=== PATIENT | male | born 1950 | race Caucasian/White ===

== ENCOUNTER 2019-07-08 16:36 | Emergency (ER) | payer MEDICARE, SELFPAY ==
[2019-07-08 16:57] VITALS: BP 114/70; PULSE 119; RESP 19; TEMP 37; O2SAT 98
[2019-07-08 17:27] LABS: Basophils Percent Auto 0.2 % (0.2-1.2); Hematocrit 52.8 % (42.0-52.0); Hemoglobin 17.8 g/dL (14.0-18.0); Immature Granulocyte Absolute 0.06 K/mm3 (0.00-0.031); Immature Granulocyte Percent A 0.5 % (0-0.5); Lymphocytes Absolute Auto 0.26 K/mm3 (0.9-3.2); Mean Corpuscular HGB Conc 33.7 g/dl (32-36); Mean Corpuscular Hemoglobin 30.2 pg (26-34); Mean Corpuscular Volume 89.5 fl (80-100); Monocytes Absolute Auto 0.7 K/mm3 (0.1-0.6); Monocytes Percent Auto 5.6 % (2.6-8.5); Neutrophils Absolute Auto 11.7 K/mm3 (1.3-6.7); Neutrophils Percent Auto 91.7 % (45.5-73.1); Platelet Count Result 191 k/mm3 (150-375); Red Cell Distribution Width 13.5 % (11.5-14.5); White Blood Count 12.8 K/mm3 (4.5-10.0)
--- NOTE | 2019-07-08 17:29 | ED.NAVMDI ---
HPI - Nausea/Vomiting/Diarrhea General Chief complaint: Nausea/Vomiting/Diarrhea Stated complaint: N/V/D Time Seen by Provider: 07/08/19 17:14 Source: patient Mode of arrival: ambulatory Limitations: no limitations History of Present Illness HPI Narrative: A 69 y/o male presents to the ED with c/o N/V/D. Pt states that at 0300 today he started to have severe diarrhea. He notes that he had episodes of diarrhea every 20 minutes. Pt then began to have nausea and dry heaves at 0600 this morning. He took Imodium at 0600, which decreased the frequency of the episodes of diarrhea. At 1500 today the patient then had an episode of bloody emesis, so he decided to come to the ED. The patient adds that last night he was coming home from [place] and stopped at a [employer] and ate a fish sandwich. He does not note any recent antibiotic use. Pt reports chills and lower ABD pain, but denies fever. MD elicited complaint: nausea, vomiting and diarrhea Onset (ago): hour(s) (14) Description of vomiting: bloody Associated nausea: Yes Associated abdominal pain: Yes Location of pain: RLQ and LLQ Pain consistency: constant Relieving factors: medication (Imodium) Associated symptoms: fever/chills Treatment prior to arrival: immodium Related Data Home Medications Medication Instructions Recorded Confirmed tadalafil 5 mg tablet 5 mg PO DAILY 04/04/19 Allergies Allergy/AdvReac Type Severity Reaction Status Date / Time EMELY Inhibitors Allergy Unknown Unknown Verified 07/08/19 17:11 nabumetone Allergy Unknown Unknown Verified 07/08/19 17:11 Review of Systems Review of Systems: All systems reviewed & are unremarkable except as noted in HPI and below Constitutional: Constitutional: Reports chills and Denies fever(s) Gastrointestinal: Gastrointestinal: Reports abdominal pain (Lower), Reports diarrhea, Reports nausea, Reports vomiting and Reports hematemesis PMFSH Past Medical History Medical History Arthritis Erectile dysfunction Hyperlipidemia Hypertension Migraine Surgical History Surgical History H/O arthroscopic knee surgery History of colonoscopy History of elbow surgery History of rotator cuff surgery History of surgery on arm History of tonsillectomy History of vasectomy Family History Family History Father Hypertension Family history of elevated blood lipids Cerebrovascular accident Grandparent Acute myocardial infarction Malignant neoplasm of prostate Mother Family history of lung cancer Social History Social History Smoking status: Never smoker Second hand tobacco smoke exposure: No Alcohol intake: current Substance use: never Substance use type: does not use Gender identity (if verbalized by the patient): Male Exam Narrative: Exam Narrative: GENERAL: Well-appearing, well-nourished, and in no acute distress. HEAD: Normocephalic, atraumatic. EYES: PERRLA and EOMI. ENT: Nares clear, Mucous membranes moist. NECK: Supple. CHEST: Clear to auscultation. No respiratory distress. HEART: Regular rate and rhythm. No murmur heard. Normal peripheral pulses. ABDOMEN: Soft, non tender, non distended, normal active bowel sounds. EXTREMITIES: Normal range of motion. No edema. SKIN: Warm, dry, no rash. NEURO: No focal deficits. Alert and oriented x3. PSYCH: Normal mood and affect. Course Course Emergency Course: Inform patient about his lab work. Advised him to drink plenty of fluids take Zofran as needed. Vital Signs Vital signs: Vital Signs Temperature 37.0 C 07/08/19 16:57 Pulse Rate 119 H 07/08/19 16:57 Respiratory Rate 19 07/08/19 16:57 Blood Pressure 114/70 07/08/19 16:57 Pulse Oximetry 98 07/08/19 16:57 Temperature 37.2 C 07/08/19 19:01 Pulse Rate 94 07/08/19 19:17 Respiratory Rate
[2019-07-08 17:30] VITALS: BP 150/93; PULSE 102
[2019-07-08 17:31] VITALS: BP 133/80; BP 143/83; PULSE 109; PULSE 113
[2019-07-08 17:40] LABS: Add Urine Microscopic? YES; Appearance Urine Clear (Clear); Bilirubin Urine Negative (Negative); Blood Urine Negative (Negative); Color Urine Yellow (Yellow); Glucose Urine UA Negative (Negative); Hyaline Casts Urine 15-19 /lpf; Ketones Urine Negative (Negative); Leukocyte Esterase Ur Negative LEU/UL (Negative); Mucus Urine Heavy /lpf; Nitrate Urine Negative (Negative); Protein Urine 1+ mg/dL (Negative); RBC Urine 0-2 /hpf (0-2); Specific Grav Ur 1.028 (1.001-1.035); Urobilinogen Urine Negative mg/dL (<2.0); WBC Urine 0-3 /hpf
[2019-07-08 18:13] LABS: Alanine Aminotransferase 23 U/L (4-50); Albumin Level 4.5 g/dL (3.5-5.1); Alkaline Phosphatase 88 U/L (38-126); Aspartate Amino Transferase 22 U/L (17-59); Bilirubin,Total 0.7 mg/dL (0.2-1.3); Blood Urea Nitrogen 20 mg/dL (9-20); Calcium 9.3 mg/dL (8.4-10.2); Carbon Dioxide 27 mmol/L (22-30); Chloride 105 mmol/L (98-107); Estimated Glomerular Filt Rate 50; Glucose 126 mg/dL (75-110); Lipase 85 U/L (23-300); Potassium 4.1 mmol/L (3.4-5.0); Sodium 141 mmol/L (137-145)
[2019-07-08] MEDS: ONDANSETRON INJ 4 MG/2 ML VIAL IV PUSH (18:20)
[2019-07-08] MEDS: SODIUM CHLORIDE 0.9% IV 1,000 ML 999 ML IV CONT (18:20)
[2019-07-08 18:23] VITALS: BP 135/80; PULSE 94; RESP 20; TEMP 37.1; O2SAT 99
[2019-07-08 19:01] VITALS: BP 123/81; PULSE 81; RESP 16; TEMP 37.2; O2SAT 100
[2019-07-08 19:17] VITALS: BP 121/97; BP 133/74; BP 142/76; PULSE 89; PULSE 93; PULSE 94
== END 2019-07-08 19:35 | disposition home or self-care (01) ==
PROVIDERS: Emergency Provider Family Medicine; PCP Family Medicine
DX: K52.9 Noninfective gastroenteritis and colitis, unspecified (principal); M19.90 Unspecified osteoarthritis, unspecified site; E78.5 Hyperlipidemia, unspecified; I10 Essential (primary) hypertension; N52.9 Male erectile dysfunction, unspecified
CPT/HCPCS: 36415; 80053; 81001; 83690; 85025; 96361; 96374; 99284; J2405; J7030

== ENCOUNTER 2020-12-14 01:57 | Day surgery (SDC) | payer MEDICARE, SELFPAY ==
[2020-12-06 13:27] VITALS: BMI 24.2
--- NOTE | 2020-12-13 13:26 | WPDANESEPPF ---
Anes - Initial Pre Proc Eval Procedure: Operation Date: 12/14/20 10:00 Proposed Procedures p Screening Colonoscopy - Jericho Crocker MD Date/Time: 12/13/20 13:26 Surgeon: Jericho Crocker MD Pre Op Diagnosis: hx of colon polyps Patient Data Age: 70 Gender: M Height: 1.83 m Weight: 81 kg Allergies Allergy/AdvReac Type Severity Reaction Status Date / Time EMELY Inhibitors Allergy Unknown Unknown Verified 12/14/20 09:04 nabumetone Allergy Unknown Unknown Verified 12/14/20 09:04 Home Medications Medication Instructions Recorded Confirmed Type diclofenac sodium 75 mg 75 mg PO BID PRN #60 tablet 08/20/19 12/14/20 Rx tablet,delayed release cholestyramine (with sugar) 4 gram 4 g PO DAILY #30 ea 11/01/20 12/14/20 Rx powder for susp in a packet irbesartan 75 mg tablet 75 mg PO DAILY #90 tablet 11/03/20 12/14/20 Rx tadalafil 5 mg tablet 5 mg PO DAILY #90 tablet 11/03/20 12/14/20 Rx Patient hx anesthesia problems: none Family hx anesthesia problems: none PMFSH Past Medical History Medical History (Updated 12/14/20 @ 09:41 by Jericho Crocker MD) Arthritis Diarrhea Erectile dysfunction Hyperlipidemia Hypertension Migraine Osteoarthritis Surgical History Surgical History H/O arthroscopic knee surgery History of colonoscopy History of elbow surgery History of rotator cuff surgery History of surgery on arm History of tonsillectomy History of vasectomy Family History Family History Father Hypertension Family history of elevated blood lipids Cerebrovascular accident Grandparent Acute myocardial infarction Malignant neoplasm of prostate Mother Family history of lung cancer Social History Social History Smoking status: Never smoker Second hand tobacco smoke exposure: No Alcohol intake: current Drinks per week: 2 Alcohol use details: 3 drinks per month. Substance use: never Substance use type: does not use Living arrangements: with family Gender identity (if verbalized by the patient): Male Spiritual care concerns: No Anes - Eval Final PreProcedure Day of Procedure 12/13/20 13:26 Patient weight: normal Heart: regular rate and rhythm Lungs: clear to auscultation and normal air movement Airway: Mallampati scale class II Neurological: alert and oriented Last oral intake: >/= 8 hours ASA classification: II Emergent: no Anesthetic plan: proceed Anesthesia type and monitoring: general GIVS and standard monitoring Informed Consent: The patient's anesthetic plan and its attendant risks and benefits were discussed with the patient/family/POA. Questions were solicited and answers provided to the satisfaction of the patient/family/POA.
[2020-12-14 08:40] VITALS: BP 155/78; PULSE 73; RESP 13; TEMP 36.5; O2SAT 96
[2020-12-14] MEDS: LACTATED RINGERS 1,000 ML 150 ML IV CONT (09:02)
--- NOTE | 2020-12-14 09:39 | WPDGICN ---
Assessment and Plan Assessment and plan (1) Colon cancer screening: Code(s): Z12.11 - Encounter for screening for malignant neoplasm of colon Status: Acute Assessment and Plan: Patient presents for colon cancer screening. He reports his mother had a right hemicolectomy for a colon cancer. Surveillance colonoscopy is suggested at 5 year intervals. (2) Family history of colon cancer in mother: Code(s): Z80.0 - Family history of malignant neoplasm of digestive organs Status: Acute Assessment and Plan: Patient reports his mother had a right hemicolectomy because of colon cancer. Apparently had a malignant colon polyp. Follow-up is suggested 5 year intervals for this reason. GI Consult Note Consult date/time: 12/14/20 09:39 HPI: Logan Rodrigues is a 70 year old male Presents for screening colonoscopy. Patient reports his current weight appetite bowel movements are normal. Patient denies abdominal pain. He has had no bleeding. Family history is significant his mother had colon cancer. Patient's most recent colonoscopy was in 2013. Previously 2008. He currently denies abdominal pain his bowel habits are normal. Screening colonoscopy to be performed today. [facility] Past Medical History Medical History (Updated 12/14/20 @ 09:41 by Jericho Crocker MD) Arthritis Diarrhea Erectile dysfunction Hyperlipidemia Hypertension Migraine Osteoarthritis Surgical History Surgical History H/O arthroscopic knee surgery History of colonoscopy History of elbow surgery History of rotator cuff surgery History of surgery on arm History of tonsillectomy History of vasectomy Family History Family History Father Hypertension Family history of elevated blood lipids Cerebrovascular accident Grandparent Acute myocardial infarction Malignant neoplasm of prostate Mother Family history of lung cancer Social History Social History Smoking status: Never smoker Second hand tobacco smoke exposure: No Alcohol intake: current Drinks per week: 2 Alcohol use details: 3 drinks per month. Substance use: never Substance use type: does not use Living arrangements: with family Gender identity (if verbalized by the patient): Male Spiritual care concerns: No Meds Home Medications and Allergies Home Medications Medication Instructions Recorded Confirmed Type diclofenac sodium 75 mg 75 mg PO BID PRN #60 tablet 08/20/19 12/14/20 Rx tablet,delayed release cholestyramine (with sugar) 4 gram 4 g PO DAILY #30 ea 11/01/20 12/14/20 Rx powder for susp in a packet irbesartan 75 mg tablet 75 mg PO DAILY #90 tablet 11/03/20 12/14/20 Rx tadalafil 5 mg tablet 5 mg PO DAILY #90 tablet 11/03/20 12/14/20 Rx Allergies Allergy/AdvReac Type Severity Reaction Status Date / Time EMELY Inhibitors Allergy Unknown Unknown Verified 12/14/20 09:04 nabumetone Allergy Unknown Unknown Verified 12/14/20 09:04 Vital Signs Vital Signs - 24 hr 12/14/20 08:40 Temperature 97.7 F Pulse Rate 73 Respiratory Rate 13 Blood Pressure 155/78 H Pulse Oximetry 96 Exam Narrative: Physical exam reveals patient to be alert. Vital signs stable. HEENT exam is unremarkable. Patient is anicteric. Lungs are clear to auscultation and percussion. Heart is without murmur or extra sounds. Abdominal exam bowel sounds are present soft nontender with no organomegaly. Digital external rectal exam is normal.
[2020-12-14 10:38] VITALS: BP 104/69; PULSE 62; RESP 23; O2SAT 98
[2020-12-14 10:48] VITALS: BP 113/78; PULSE 65; RESP 20; O2SAT 98
[2020-12-14 10:58] VITALS: BP 131/67; PULSE 56; RESP 21; O2SAT 99
== END 2020-12-14 11:10 | disposition home or self-care (01) ==
PROVIDERS: PCP Family Medicine; Visit Provider Internal Medicine Gastroenterology
PROC: 0DJD8ZZ Inspection of Lower Intestinal Tract, Via Natural or Artificial Opening Endoscopic (ICD-10-PCS; CPT 45378; principal; 2020-12-14 10:00)
DX: Z12.11 Encounter for screening for malignant neoplasm of colon (principal); Z80.0 Family history of malignant neoplasm of digestive organs; K64.8 Other hemorrhoids; M19.90 Unspecified osteoarthritis, unspecified site; I10 Essential (primary) hypertension; E78.5 Hyperlipidemia, unspecified
CPT/HCPCS: G0105; J2001; J2704; J7120

== ENCOUNTER → 2021-01-20 02:45 | Outpatient (CLI) | payer MEDICARE, SELFPAY ==
[2021-01-20 16:56] LABS: SARS-CoV-2 RNA PCR Negative
== END ==
PROVIDERS: PCP Family Medicine; Visit Provider Family Medicine
DX: Z20.822 Contact with and (suspected) exposure to COVID-19 (principal); R09.89 Other specified symptoms and signs involving the circulatory and respiratory systems
CPT/HCPCS: C9803; U0003; U0005

== ENCOUNTER → 2021-05-04 11:49 | Outpatient (CLI) | payer MEDICARE, SELFPAY ==
--- NOTE | ~2021-05-04 | XR_ITS ---
EXAMINATION: XR thoracic spine 3V EXAM DATE: 05/04/2021 12:05 INDICATION: M54.6 - Pain in thoracic spine . TECHNIQUE: Frontal and lateral projections of the thoracic spine as well as lateral swimmers projecti on of the upper thoracic spine for interpretation. There is no prior study for comparison. FINDINGS: Moderate to large sized mid and lower thoracic ridging endplate osteophytes. Mild diffuse loss of thoracic vertebral body and disc heights. No endplate erosive change. There are no acute frac tures identified. Paraspinal soft tissue is unremarkable. IMPRESSION: Spondylosis and sizable endplate osteophytes. Mild diffuse loss of vertebral body heights without acute fracture line identified. Reviewed, dictated and finalized at location A. 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
== END ==
PROVIDERS: Visit Provider Family Medicine
DX: M47.814 Spondylosis without myelopathy or radiculopathy, thoracic region (principal)
CPT/HCPCS: 72072

== ENCOUNTER 2021-05-16 12:31 | Outpatient (CLI) | payer MEDICARE, SELFPAY ==
--- NOTE | ~2021-05-16 | US_ITS ---
US renal BI 05/16/2021 13:33 Procedure: Realtime transabdominal ultrasound of the kidneys and bladder. Indication: Abnormal labs. Comparison: Chronic kidney disease Findings: Renal echotexture is normal bilaterally without hydronephrosis, contour deforming mass or r enal calculus. The right kidney measures 11.6 cm and left kidney measures 12 cm. There are bilateral renal cysts, largest in the right kidney measuring 5 cm in largest in the left kidney measuring 3.1 c m. Bladder within normal limits. Impression: 1: Moderate left hydronephrosis. 2: Bilateral renal cysts. Reviewed, dictated and finalized at location B. [facility] Impression: 1: Moderate left hydronephrosis. 2: Bilateral renal cysts.
== END 2021-05-16 12:32 | disposition home or self-care (01) ==
LOC: ANHIMG 12:35
PROVIDERS: PCP Family Medicine; Visit Provider Family Medicine
DX: N18.30 Chronic kidney disease, stage 3 unspecified (principal); N13.30 Unspecified hydronephrosis; N28.1 Cyst of kidney, acquired
CPT/HCPCS: 76775

== ENCOUNTER 2021-06-27 09:04 | Outpatient (CLI) | payer MEDICARE, SELFPAY ==
--- NOTE | ~2021-06-27 | CT_ITS ---
EXAMINATION: CT abdomen pelvis wo/w con DATE: 06/27/2021 09:43 INDICATION: Hydronephrosis TECHNIQUE: Computed tomography (CT) of the abdomen and pelvis was performed without intravenous contr ast. CT of the abdomen and pelvis was then performed with a total of 130 mL Omnipaque 350 intravenous contrast using a double-bolus technique for simultaneous opacification of the renal parenchyma and r enal collecting system. The dose-length product (DLP) was 956.30 mGy-cm. Automated exposure control a nd iterative reconstruction technique were employed. COMPARISON: Ultrasound, 05/16/2021 FINDINGS: Minimal dependent atelectasis is present in the lung bases. The heart size is normal. There is a 2 mm nodule of the right middle lobe. There are 4 mm nodules of the lower lobes. Cysts of the l iver measure up to 1.3 cm in the left hepatic lobe. The spleen, pancreas, gallbladder, and adrenal gl ands are normal. There are peripelvic cysts of the left kidney measuring up to 4.4 cm which account f or the sonographic finding in question. Parenchymal cysts of the kidneys measure up to 5.1 cm on the right. No suspicious renal or urothelial lesion is identified. No stones are identified in the kidney s, ureters, or bladder. There is no hydronephrosis or hydroureter. No pathologically enlarged abdomin al or pelvic lymph nodes are identified. There is no free intraperitoneal gas or evidence of bowel ob struction. There is mild lumbar spondylosis. IMPRESSION: 1. Peripelvic cysts of the left kidney accounting for the sonographic findings. No suspicious renal o r urothelial lesion identified. No hydronephrosis or hydroureter. Reviewed, dictated and finalized at location B. [facility] IMPRESSION: 1. Peripelvic cysts of the left kidney accounting for the sonographic findings. No suspicious renal or urothelial lesion identified. No hydronephrosis or hydr oureter.
== END 2021-06-27 09:05 | disposition home or self-care (01) ==
LOC: ANHIMG 09:06
PROVIDERS: PCP Family Medicine; Visit Provider Urology
DX: N13.30 Unspecified hydronephrosis (principal); K76.89 Other specified diseases of liver; N28.1 Cyst of kidney, acquired
CPT/HCPCS: 74178; Q9967

== ENCOUNTER 2023-06-13 11:18 | Emergency (ER) | payer MEDICARE, SELFPAY ==
[2023-06-13 11:23] VITALS: BP 133/82; PULSE 87; RESP 16; TEMP 36.7; O2SAT 98
--- NOTE | 2023-06-13 11:26 | ED.URI ---
HPI - URI/Sore Throat General Chief Complaint: Upper Respiratory Infection Stated Complaint: SORE THROAT/EARACHE/JAW PAIN/HOARSE Time Seen by Provider: 06/13/23 11:26 Source: patient Mode of arrival: ambulatory Limitations: no limitations History of Present Illness HPI Narrative: 73 yo male presents complaint of sore throat, nasal congestion, right ear pain for 2 days. Afebrile. Taking Coricidin to treat congestion. Denies nausea vomiting diarrhea. No cough or chest congestion. All systems reviewed and negative except as noted above. Related Data Allergies Allergy/AdvReac Type Severity Reaction Status Date / Time EMELY Inhibitors Allergy Unknown Unknown Verified 06/13/23 11:33 nabumetone Allergy Unknown Unknown Verified 06/13/23 11:33 Review of Systems Review of Systems: CONSTITUTIONAL: Denies fever, chills, or sweats. EYES: Denies visual changes, redness, or discharge. ENT: Reports rhinorrhea, congestion, sore throat, right ear pain CARDIOVASCULAR: Denies chest pain, palpitations, or edema. RESPIRATORY: Denies cough or dyspnea. GASTROINTESTINAL: Denies abdominal pain, nausea, vomiting, or diarrhea. GENITOURINARY: Denies dysuria or hematuria. SKIN: Denies rash or itching. MUSCULOSKELETAL: Denies back pain, joint pain, or myalgia. NEUROLOGIC: Denies headache, numbness, or weakness. PSYCHIATRIC: Denies anxiety or depression. All other systems reviewed are negative, except as documented in HPI. [facility] Past Medical History Medical History Arthritis Chronic renal insufficiency, stage III (moderate) Diarrhea Elevated PSA Erectile dysfunction Hyperlipidemia Hypertension Migraine Osteoarthritis Prediabetes Surgical History Surgical History H/O arthroscopic knee surgery History of colonoscopy History of elbow surgery History of rotator cuff surgery History of surgery on arm History of tonsillectomy History of vasectomy Family History Family History Father Hypertension Family history of elevated blood lipids Cerebrovascular accident Grandparent Acute myocardial infarction Malignant neoplasm of prostate Mother Family history of lung cancer Social History Social History (Reviewed 06/04/23 @ 15:31 by Isra Lewis [facility] Smoking status: Never smoker Second hand tobacco smoke exposure: No Alcohol intake: current Drinks per week: 2 Alcohol use details: 3 drinks per month. Substance use: never Substance use type: does not use Lack of Transportation: No Lack of Food: Never True Current Housing: I Have Housing Concerned About Future Housing: No Difficulty Paying Gas/Electric Bills: No Difficulty Paying for Meds: No Currently Unemployed: No Education: Associate Degree Difficulty w/ Childcare or Family Care: No Living arrangements: with family Occupation/Education: retired Gender identity (if verbalized by the patient): Male Sexual Orientation (if Verbalized by the Patient): Straight or Heterosexual Spiritual care concerns: No Agree to blood products: Yes Comments At time of signature, agree with nursing past medical, surgical, social and family history. There is no relevant family history pertinent to the presenting complaint. Exam Narrative: GENERAL: This is a well-nourished, well-developed patient, in no apparent distress. HEAD: normocephalic, atraumatic. EYES: PERRL. Sclera clear/white. Vision is grossly intact. EARS: External ears normal, auditory canals clear and without drainage, TMs normal without perforation. Hearing grossly intact. NOSE: External nose normal with no obvious nasal discharge, nares without redness, no rhinorrhea. THROAT: Mucous membranes moist, erythema with swelling. No exudates. Tonsils 1+ bilaterally. NECK: Neck supple, non-tender wi
== END 2023-06-13 11:45 | disposition home or self-care (01) ==
PROVIDERS: Emergency Provider Nurse Practitioner Family; PCP Family Medicine
DX: J02.9 Acute pharyngitis, unspecified (principal); H92.01 Otalgia, right ear; Z20.822 Contact with and (suspected) exposure to COVID-19; I12.9 Hypertensive chronic kidney disease with stage 1 through stage 4 chronic kidney disease, or unspecified chronic kidney disease; N18.30 Chronic kidney disease, stage 3 unspecified; E78.5 Hyperlipidemia, unspecified; M19.90 Unspecified osteoarthritis, unspecified site; R73.03 Prediabetes; Z98.52 Vasectomy status
CPT/HCPCS: 87081; 87426; 87804; 87880; 99213; G0463

== ENCOUNTER 2023-06-21 09:33 | Outpatient (CLI) | payer MEDICARE, SELFPAY ==
--- NOTE | ~2023-06-21 | US_ITS ---
Renal-Bladder ultrasound Clinical History: Chronic kidney disease Technique: Real-time sonographic imaging of the kidneys and urinary bladder was performed. Findings: The right kidney measures 13.1 cm in length and the left kidney measures 12.9 cm. There is no hydronephrosis or renal calculus identified. Renal cortical echogenicity is within normal limits. No solid renal mass lesion is identified. Bilateral renal cysts are present. The urinary bladder is moderately distended at the time of this exam. No intraluminal echoes are iden tified. No abnormal wall thickening is seen. Prostate gland enlarged. Impression: Unremarkable ultrasound of the kidneys and urinary bladder. Enlarged prostate gland. Reviewed, dictated and finalized at location . 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 Enlarged prostate gland.
[2023-06-21 10:05] LABS: Appearance Urine Clear (Clear); Bilirubin Urine Negative (Negative); Blood Urine Negative (Negative); Color Urine Yellow (Yellow); Glucose Urine UA Negative (Negative); Ketones Urine Negative (Negative); Leukocyte Esterase Ur Negative LEU/UL (Negative); Nitrate Urine Negative (Negative); Protein Urine Negative (Negative); Specific Grav Ur 1.008 (1.001-1.035); Urobilinogen Urine 0.2 mg/dL (<2.0)
[2023-06-21 10:16] LABS: Add Urine Microscopic? NO
== END 2023-06-21 09:34 | disposition home or self-care (01) ==
PROVIDERS: PCP Family Medicine; Referring Provider Physician Assistant; Visit Provider Family Medicine
DX: N18.30 Chronic kidney disease, stage 3 unspecified (principal); R30.0 Dysuria; N40.0 Benign prostatic hyperplasia without lower urinary tract symptoms
CPT/HCPCS: 76775; 81003

== ENCOUNTER 2023-08-01 11:18 | Emergency (ER) | payer MEDICARE, SELFPAY ==
--- NOTE | 2023-08-01 11:29 | ECG_ITS ---
Measurements Intervals [place] Rate: 73 P: 56 IN: 157 QRS: 29 QRSD: 90 T: 67 QT: 359 QTc: 385 Interpretive Statements SINUS RHYTHM NORMAL ECG SEE SCANNED COPY FOR SIGNATURE MTDD
[2023-08-01 11:36] VITALS: BP 202/100; PULSE 78; RESP 16; TEMP 36.7; O2SAT 96
--- NOTE | 2023-08-01 11:49 | ED.GENADULT ---
HPI - General Adult General Chief complaint: Unspecified Stated complaint: CONFUSION Time Seen by Provider: 08/01/23 11:25 Source: patient Mode of arrival: ambulatory Limitations: no limitations History of Present Illness HPI narrative: 73-year-old male with history of high blood pressure presents with complaint of feeling forgetful and, ?brain fog ?. Patient states that he has had some nasal congestion, postnasal drainage and cough for the past 2 days related to cutting grass. He states yesterday he got up during the middle the night to use the bathroom and coughed, causing nose bleed. States ?had a significant amount of blood from my nose ?. Got up later than usual today. Did his normal morning routine. Ate breakfast and then states he could not remember what he was supposed to do next. Called his and states he just kept saying over and over again i dont know what im doing . Also does not remember what he did yesterday. Has been off his BP meds for over a week. Was concerned was causing diarrhea. Pt is ambulatory with steady gait. Denies dizziness. C/o pressure across forehead. No weakness to extremities or facial droop. Oriented to person and place. Is confused on time. Knows that time if he looks at the clock but states he cannot remember what day it is. All systems reviewed and negative except as noted above. Related Data Allergies Allergy/AdvReac Type Severity Reaction Status Date / Time EMELY Inhibitors Allergy Unknown Unknown Verified 08/01/23 11:24 nabumetone Allergy Unknown Unknown Verified 08/01/23 11:24 [facility] Past Medical History Medical History Arthritis Chronic renal insufficiency, stage III (moderate) Diarrhea Elevated PSA Erectile dysfunction Hyperlipidemia Hypertension Migraine Osteoarthritis Prediabetes Surgical History Surgical History H/O arthroscopic knee surgery History of colonoscopy History of elbow surgery History of rotator cuff surgery History of surgery on arm History of tonsillectomy History of vasectomy Family History Family History Father Hypertension Family history of elevated blood lipids Cerebrovascular accident Grandparent Acute myocardial infarction Malignant neoplasm of prostate Mother Family history of lung cancer Social History Social History Smoking status: Never smoker Second hand tobacco smoke exposure: No Alcohol intake: current Drinks per week: 2 Alcohol use details: 3 drinks per month. Substance use: never Substance use type: does not use Lack of Transportation: No Lack of Food: Never True Current Housing: I Have Housing Concerned About Future Housing: No Difficulty Paying Gas/Electric Bills: No Difficulty Paying for Meds: No Currently Unemployed: No Education: Associate Degree Difficulty w/ Childcare or Family Care: No Living arrangements: with family Occupation/Education: retired Gender identity (if verbalized by the patient): Male Sexual Orientation (if Verbalized by the Patient): Straight or Heterosexual Spiritual care concerns: No Agree to blood products: Yes Comments At time of signature, agree with nursing past medical, surgical, social and family history. There is no relevant family history pertinent to the presenting complaint. Exam Narrative: GENERAL: This is a well-nourished, well-developed patient, in no apparent distress. HEAD: normocephalic, atraumatic. EYES: PERRL. Sclera clear/white. Vision is grossly intact. Extraocular motions intact EARS: External ears normal, auditory canals clear and without drainage, TMs normal without perforation. Hearing grossly intact. NOSE: External nose normal with no obvious nasal discharge, nares without
== END 2023-08-01 11:40 | disposition short-term general hospital (02) ==
PROVIDERS: Emergency Provider Nurse Practitioner Family; PCP Family Medicine
DX: R41.3 Other amnesia (principal); I10 Essential (primary) hypertension; M19.90 Unspecified osteoarthritis, unspecified site; I12.9 Hypertensive chronic kidney disease with stage 1 through stage 4 chronic kidney disease, or unspecified chronic kidney disease; N18.30 Chronic kidney disease, stage 3 unspecified; E78.5 Hyperlipidemia, unspecified; R73.03 Prediabetes; Z98.52 Vasectomy status
CPT/HCPCS: 93005; 99213; G0463

== ENCOUNTER 2023-08-01 12:07 | Emergency (ER) | payer MEDICARE, SELFPAY ==
--- NOTE | ~2023-08-01 | CT_ITS ---
Non-contrast Head CT History: Altered mental status Technique: Axial non-contrast imaging of the brain was performed. Dose reduction technique was used on this scan by utilizing automated exposure control and iterative reconstruction technique. The dose -length product (DLP) was 605.33 mGy-cm. Findings: There is no evidence of intracranial hemorrhage, mass lesion, or acute infarct. Brain par enchyma appears normal. The ventricles and subarachnoid spaces are normal in size. The calvarium ap pears normal. The visualized paranasal sinuses and mastoid air cells are clear. Impression: No significant abnormality seen. Reviewed, dictated and finalized at location . Impression: No significant abnormality seen.
--- NOTE | ~2023-08-01 | XR_ITS ---
Clinical Indication: Hypertension PA and lateral views of the chest: Comparison: None Findings: The lungs are clear, without evidence of focal consolidation or pleural effusion. Cardiome diastinal silhouette is within normal limits. Bones and soft tissues are unremarkable. Impression: Normal chest. Reviewed, dictated and finalized at location . Impression: Normal chest.
[2023-08-01 12:08] VITALS: BP 219/115; PULSE 77; RESP 16; TEMP 36.2; O2SAT 99
--- NOTE | 2023-08-01 12:16 | ED.NEUROSD ---
HPI - Neuro Symptoms/Deficit General Chief Complaint: Neuro Symptoms/Deficit Stated Complaint: short term memory loss, elevated BP Time Seen by Provider: 08/01/23 12:15 Source: patient Mode of arrival: ambulatory Limitations: no limitations History of Present Illness HPI Narrative: Logan is a 73-year-old male patient presenting to the emergency room with complaints of brain fog and elevated blood pressure. He reports that he had a nosebleed last night. This morning became confused and for got when he was doing and called his and told her he did not know what he was doing so she quickly went home and the patient was taken to the [facility]. Upon arrival to the ER patient's blood pressure is 219/115. He is currently alert and oriented x4. Does have slight headache across the forehead. Had this happen before and it was due to his blood pressure being elevated. Related Data Allergies Allergy/AdvReac Type Severity Reaction Status Date / Time EMELY Inhibitors Allergy Unknown Unknown Verified 08/01/23 12:24 nabumetone Allergy Unknown Unknown Verified 08/01/23 12:24 Review of Systems Review of Systems: Pertinent positives per HPI. Patient denies any fever, chills, rash, visual changes, dizziness, cough, shortness of breath, chest pain, palpitations, nausea, vomiting, diarrhea, constipation, abdominal pain, or any urinary issues. [facility] Past Medical History Medical History Arthritis Chronic renal insufficiency, stage III (moderate) Diarrhea Elevated PSA Erectile dysfunction Hyperlipidemia Hypertension Migraine Osteoarthritis Prediabetes Surgical History Surgical History H/O arthroscopic knee surgery History of colonoscopy History of elbow surgery History of rotator cuff surgery History of surgery on arm History of tonsillectomy History of vasectomy Family History Family History Father Hypertension Family history of elevated blood lipids Cerebrovascular accident Grandparent Acute myocardial infarction Malignant neoplasm of prostate Mother Family history of lung cancer Social History Social History Smoking status: Never smoker Second hand tobacco smoke exposure: No Alcohol intake: current Drinks per week: 2 Alcohol use details: 3 drinks per month. Substance use: never Substance use type: does not use Lack of Transportation: No Lack of Food: Never True Current Housing: I Have Housing Concerned About Future Housing: No Difficulty Paying Gas/Electric Bills: No Difficulty Paying for Meds: No Currently Unemployed: No Education: Associate Degree Difficulty w/ Childcare or Family Care: No Living arrangements: with family Occupation/Education: retired Gender identity (if verbalized by the patient): Male Sexual Orientation (if Verbalized by the Patient): Straight or Heterosexual Spiritual care concerns: No Agree to blood products: Yes Comments At the time of my signature, I reviewed and agree with the nursing past medical, surgical, social, and family history. There is no relevant family history pertinent to the patient complaint. Exam Narrative: General: Well-developed, well nourished, in no apparent distress Head: Normocephalic, atraumatic Eyes: Pupils equally round and reactive to light bilaterally, EOM intact, sclera and conjunctive clear, no discharge, lids normal Ears: TMs intact and clear, ear canals clear, no drainage, grossly hearing normal. Nose: Nares patent, no discharge, no inflammation, no sinus tenderness. Mouth: Oropharynx without lesions or masses, good dentition, MMM. Tongue midline, even rise and fall of uvula Neck: Supple, trachea midline, no enlargement of anterior or posterior cervical nodes, n
[2023-08-01 12:18] VITALS: O2SAT 97
--- NOTE | 2023-08-01 12:20 | ECG_ITS ---
SEE SCANNED COPY FOR CONFIRMED REPORT MTDD
[2023-08-01 12:29] LABS: Glucose Point of Care 147 mg/dl (65-105)
[2023-08-01 12:35] LABS: Appearance Urine Clear (Clear); Bilirubin Urine Negative (Negative); Blood Urine Negative (Negative); Color Urine Yellow (Yellow); Glucose Urine UA Negative (Negative); Ketones Urine Negative (Negative); Leukocyte Esterase Ur Negative LEU/UL (Negative); Nitrate Urine Negative (Negative); Protein Urine Negative (Negative); Urobilinogen Urine 0.2 mg/dL (<2.0)
[2023-08-01 12:42] LABS: Add Urine Microscopic? NO; Basophils Percent Auto 0.4 % (0.2-1.2); Eosinophils Absolute Auto 0.1 K/mm3 (0-0.3); Hematocrit 50.4 % (42.0-52.0); Hemoglobin 17.1 g/dL (14.0-18.0); Immature Granulocyte Absolute 0.04 K/mm3 (0.00-0.031); Immature Granulocyte Percent A 0.4 % (0-0.5); Lymphocytes Absolute Auto 1.55 K/mm3 (0.9-3.2); Lymphocytes Percent Auto 15.2 % (18.3-44.2); Mean Corpuscular HGB Conc 33.9 g/dl (32-36); Mean Corpuscular Hemoglobin 30.5 pg (26-34); Mean Corpuscular Volume 89.8 fl (80-100); Mean Platelet Volume 9.5 fl (7.4-10.4); Monocytes Absolute Auto 1.1 K/mm3 (0.1-0.6); Monocytes Percent Auto 10.3 % (2.6-8.5); Neutrophils Absolute Auto 7.4 K/mm3 (1.3-6.7); Neutrophils Percent Auto 72.7 % (45.5-73.1); Platelet Count Result 222 k/mm3 (150-375); Red Blood Count 5.61 M/mm3 (4.6-6.20); Specific Grav Ur 1.004 (1.001-1.035); White Blood Count 10.2 K/mm3 (4.5-10.0)
[2023-08-01 12:47] LABS: Prothrombin Time 13.2 Seconds (11.1-14.7)
[2023-08-01 12:48] LABS: Alanine Aminotransferase 19 U/L (6-50); Albumin Level 4.9 g/dL (3.5-5.1); Alkaline Phosphatase 88 U/L (38-126); Anion Gap 10 mmol/L (4-12); Aspartate Amino Transferase 22 U/L (17-59); Bilirubin,Total 0.7 mg/dL (0.2-1.3); Blood Urea Nitrogen 17 mg/dL (9-20); Calcium 9.9 mg/dL (8.4-10.2); Carbon Dioxide 26 mmol/L (22-30); Chloride 108 mmol/L (98-107); Estimated CRCL calculation 49 ml/min; Estimated Glomerular Filt Rate 54; Glucose 133 mg/dL (65-110); Partial Thromboplastin Time 27.8 Seconds (22.3-36.8); Potassium 3.9 mmol/L (3.4-5.0); Sodium 144 mmol/L (137-145)
[2023-08-01 13:00] LABS: Troponin I < 0.012 ng/mL (0.000-0.034)
== END 2023-08-01 13:51 | disposition home or self-care (01) ==
PROVIDERS: Emergency Provider Nurse Practitioner Family; PCP Family Medicine
DX: R41.89 Other symptoms and signs involving cognitive functions and awareness (principal); I12.9 Hypertensive chronic kidney disease with stage 1 through stage 4 chronic kidney disease, or unspecified chronic kidney disease; E78.5 Hyperlipidemia, unspecified; N18.30 Chronic kidney disease, stage 3 unspecified
CPT/HCPCS: 36415; 70450; 71046; 80053; 81003; 82948; 84484; 85025; 85610; 85730; 93005; 99284

== ENCOUNTER 2023-10-24 10:38 | Emergency (ER) | payer MEDICARE, SELFPAY ==
--- NOTE | 2023-10-24 10:43 | ED.EXTPRO ---
HPI - Extremity Problem General Chief complaint: Extremity Problem,Nontraumatic Stated complaint: Leg Pain Time Seen by Provider: 10/24/23 10:40 Source: patient Mode of arrival: ambulatory Limitations: no limitations History of Present Illness HPI Narrative: Logan is a 73-year-old male patient presenting to the clinic today with complaints of right-sided sciatica pain for the past 2-3 days. He reports he contacted his primary care provider and there are not able to get him into the office today. States he is having some severe pain to the right side of the back/posterior hip that is radiating down into his leg. Rates pain 8/10 currently. Has taken diclofenac for pain without relief. Denies any swelling in the right lower extremity. Denies any injury. Thinks he may have slept on it wrong. Related Data Home Medications Medication Instructions Recorded Confirmed irbesartan 75 mg tablet 75 mg PO DAILY 10/24/23 10/24/23 Allergies Allergy/AdvReac Type Severity Reaction Status Date / Time EMELY Inhibitors Allergy Unknown Unknown Verified 10/24/23 10:49 nabumetone Allergy Unknown Unknown Verified 10/24/23 10:49 Review of Systems Review of Systems: Pertinent positives per HPI. Patient denies any fever, chills, rash, headache, visual changes, dizziness, cough, runny nose, sore throat, shortness of breath, chest pain, palpitations, nausea, vomiting, diarrhea, constipation, abdominal pain, or any urinary issues. [facility] Past Medical History Medical History Arthritis Chronic renal insufficiency, stage III (moderate) Diarrhea Elevated PSA Erectile dysfunction Hyperlipidemia Hypertension Migraine Osteoarthritis Prediabetes Surgical History Surgical History H/O arthroscopic knee surgery History of colonoscopy History of elbow surgery History of rotator cuff surgery History of surgery on arm History of tonsillectomy History of vasectomy Family History Family History Father Hypertension Family history of elevated blood lipids Cerebrovascular accident Grandparent Acute myocardial infarction Malignant neoplasm of prostate Mother Family history of lung cancer Social History Social History Smoking status: Never smoker Second hand tobacco smoke exposure: No Alcohol intake: current Drinks per week: 2 Alcohol use details: 3 drinks per month. Substance use: never Substance use type: does not use Lack of Transportation: No Lack of Food: Never True Current Housing: I Have Housing Concerned About Future Housing: No Difficulty Paying Gas/Electric Bills: No Difficulty Paying for Meds: No Currently Unemployed: No Education: Associate Degree Difficulty w/ Childcare or Family Care: No Living arrangements: with family Occupation/Education: retired Gender identity (if verbalized by the patient): Male Sexual Orientation (if Verbalized by the Patient): Straight or Heterosexual Spiritual care concerns: No Agree to blood products: Yes Comments At the time of my signature, I reviewed and agree with the nursing past medical, surgical, social, and family history. There is no relevant family history pertinent to the patient complaint. Exam Narrative: General: Well-developed, well nourished, in no apparent distress Head: Normocephalic, atraumatic. Cardio: Regular rate and rhythm, s1 and s2 normal, no murmur appreciated. Resp: Clear to auscultation bilaterally, no rhonchi, rales, wheezing or rubs. Musculoskeletal: No deformity, tender to palpation over the right para the spinous musculature and over the posterior hip, shooting pain going from the posterior hip to the lower right leg, grossly normal range of motion, muscle strength strong and equa
[2023-10-24 10:48] VITALS: BP 125/90; PULSE 83; RESP 16; TEMP 36.6; O2SAT 99
[2023-10-24 10:49] VITALS: BP 125/90; PULSE 83; RESP 16; TEMP 36.6; O2SAT 99
== END 2023-10-24 10:56 | disposition home or self-care (01) ==
PROVIDERS: Emergency Provider Nurse Practitioner Family; PCP Family Medicine
DX: M54.31 Sciatica, right side (principal); M19.90 Unspecified osteoarthritis, unspecified site; I12.9 Hypertensive chronic kidney disease with stage 1 through stage 4 chronic kidney disease, or unspecified chronic kidney disease; N18.30 Chronic kidney disease, stage 3 unspecified; E78.5 Hyperlipidemia, unspecified; R73.03 Prediabetes
CPT/HCPCS: 99213; G0463

== ENCOUNTER 2023-10-26 14:42 | Emergency (ER) | payer MEDICARE, SELFPAY ==
--- NOTE | ~2023-10-26 | CT_ITS ---
EXAMINATION: CT hip RT wo con DATE: 10/26/2023 15:33 INDICATION: Right hip pain. Sciatica. TECHNIQUE: Computed tomography (CT) of the right hip was performed without intravenous contrast. Auto mated exposure control and iterative reconstruction technique were employed. The dose-length product was 312.62 mGy-cm. COMPARISON: None FINDINGS: Bone alignment is normal. No fracture. There is severe right hip osteoarthritis. IMPRESSION: 1. Severe right hip osteoarthritis. Reviewed, dictated and finalized at location A.
--- NOTE | ~2023-10-26 | CT_ITS ---
EXAMINATION: CT lumbar spine wo con DATE: 10/26/2023 15:33 INDICATION: Low back pain. Sciatica. TECHNIQUE: Computed tomography (CT) of the lumbar spine was performed without intravenous contrast. A utomated exposure control and iterative reconstruction technique were employed. The dose-length produ ct was 741.15 mGy-cm. COMPARISON: None FINDINGS: There are cysts in the kidneys measuring up to 4.9 cm on the right. Bone alignment is evan l. Vertebral body heights are normal. There is mild decreased disc height at L4-L5 and L5-S1. The fol lowing disc levels are specifically discussed: L1-L2: The disc does not extend beyond the endplate margin. There is moderate bilateral facet joint o steoarthritis. There is no neural foraminal stenosis. There is no central canal stenosis. L2-L3: The disc is bulging. There is severe bilateral facet joint osteoarthritis. There is mild bilat eral neural foraminal stenosis. There is mild central canal stenosis. L3-L4: The disc is bulging. There is severe bilateral facet joint osteoarthritis. There is moderate b ilateral neural foraminal stenosis. There is moderate central canal stenosis. L4-L5: The disc is bulging. There is severe bilateral facet joint osteoarthritis. There is moderate b ilateral neural foraminal stenosis. There is moderate central canal stenosis. L5-S1: The disc is bulging. There is severe bilateral facet joint osteoarthritis. There is mild right and moderate left neural foraminal stenosis. There is mild central canal stenosis. IMPRESSION: 1. Moderate lumbar spondylosis. Reviewed, dictated and finalized at location A.
[2023-10-26 14:43] VITALS: BP 154/91; PULSE 54; RESP 16; TEMP 36.5; O2SAT 95
--- NOTE | 2023-10-26 15:20 | ED.BACK ---
HPI - Back Pain/Injury General Chief Complaint: Back Pain/Injury Stated Complaint: sciaticia Time Seen by Provider: 10/26/23 15:20 Focused HPI: Logan is a 73-year-old male patient presenting to the ER today with complaints of sciatica pain in the right low back/hip. States the pain is radiating into his right posterior knee. This has been going on for the past week. Was seen by myself in the [facility] on Sunday and I prescribed him Medrol Dosepak and Flexeril and he states that he has not had relief. No known injury. States that he felt as though he slept wrong and developed the pain. General: Well-developed, well nourished, in no apparent distress Head: Normocephalic, atraumatic. Cardio: Regular rate and rhythm, s1 and s2 normal, no murmur appreciated. Resp: Clear to auscultation bilaterally, no rhonchi, rales, wheezing or rubs. Musculoskeletal: No deformity tender to palpation over the left paraspinous muscles in the low back and over the SI joint, unable to sit down due to increase in pain, grossly normal range of motion, muscle strength strong and equal, peripheral pulse strong, no edema, no cyanosis, normal gait and station Patient screened in triage and initial orders placed. Additional care and disposition to be based upon diagnostic testing and treatment. Source: patient Mode of arrival: ambulatory Limitations: no limitations Related Data Home Medications Medication Instructions Recorded Confirmed irbesartan 75 mg tablet 75 mg PO DAILY 10/24/23 10/24/23 Allergies Allergy/AdvReac Type Severity Reaction Status Date / Time EMELY Inhibitors Allergy Unknown Unknown Verified 10/24/23 10:49 nabumetone Allergy Unknown Unknown Verified 10/24/23 10:49 Review of Systems Review of Systems: Pertinent positives per HPI. Patient denies any fever, chills, rash, headache, visual changes, dizziness, cough, runny nose, sore throat, shortness of breath, chest pain, palpitations, nausea, vomiting, diarrhea, constipation, abdominal pain, or any urinary issues. [facility] Past Medical History Medical History Arthritis Chronic renal insufficiency, stage III (moderate) Diarrhea Elevated PSA Erectile dysfunction Hyperlipidemia Hypertension Migraine Osteoarthritis Prediabetes Surgical History Surgical History H/O arthroscopic knee surgery History of colonoscopy History of elbow surgery History of rotator cuff surgery History of surgery on arm History of tonsillectomy History of vasectomy Family History Family History Father Hypertension Family history of elevated blood lipids Cerebrovascular accident Grandparent Acute myocardial infarction Malignant neoplasm of prostate Mother Family history of lung cancer Social History Social History Smoking status: Never smoker Second hand tobacco smoke exposure: No Alcohol intake: current Drinks per week: 2 Alcohol use details: 3 drinks per month. Substance use: never Substance use type: does not use Lack of Transportation: No Lack of Food: Never True Current Housing: I Have Housing Concerned About Future Housing: No Difficulty Paying Gas/Electric Bills: No Difficulty Paying for Meds: No Currently Unemployed: No Education: Associate Degree Difficulty w/ Childcare or Family Care: No Living arrangements: with family Occupation/Education: retired Gender identity (if verbalized by the patient): Male Sexual Orientation (if Verbalized by the Patient): Straight or Heterosexual Spiritual care concerns: No Agree to blood products: Yes Comments At the time of my signature, I reviewed and agree with the nursing past medical, surgical, social, and family history. There is no relevant family hist
== END 2023-10-26 16:13 | disposition home or self-care (01) ==
PROVIDERS: Emergency Provider Nurse Practitioner Family; PCP Family Medicine
DX: M54.41 Lumbago with sciatica, right side (principal); M16.11 Unilateral primary osteoarthritis, right hip; I12.9 Hypertensive chronic kidney disease with stage 1 through stage 4 chronic kidney disease, or unspecified chronic kidney disease; N18.30 Chronic kidney disease, stage 3 unspecified; E78.5 Hyperlipidemia, unspecified; R73.03 Prediabetes
CPT/HCPCS: 72131; 73700; 99284

== ENCOUNTER 2023-11-03 11:29 | Emergency (ER) | payer MEDICARE, SELFPAY ==
[2023-11-03 11:45] VITALS: BP 161/87; PULSE 75; RESP 16; TEMP 36.6; O2SAT 99
--- NOTE | 2023-11-03 11:47 | ED.EXTPRO ---
HPI - Extremity Problem General Chief complaint: Extremity Problem,Nontraumatic Stated complaint: R LEG PAIN Time Seen by Provider: 11/03/23 11:47 History of Present Illness HPI Narrative: patient presents with complaints of exacerbation of chronic right leg pain. He has been to emergency department and has been seen here for the same complaint. He does have an orthopedic appointment scheduled for November 21. He has been taking hydrocodone and gabapentin for pain relief. He did do a short course of steroids earlier this month. He reports that pain is getting more difficult to tolerate. He denies any injury or trauma. He is noted to walk with a limping gait, states this has been normal for him over the past couple of weeks Related Data Home Medications Medication Instructions Recorded Confirmed irbesartan 75 mg tablet 75 mg PO DAILY 10/24/23 11/03/23 Allergies Allergy/AdvReac Type Severity Reaction Status Date / Time EMELY Inhibitors AdvReac Intermediate Muscle Pain Verified 11/03/23 12:32 nabumetone AdvReac Intermediate Diarrhea Verified 11/03/23 12:32 Review of Systems Review of Systems: All systems reviewed & are unremarkable except as noted in HPI and below Constitutional: Constitutional: Reports no additional constitutional complaints ENT: Reports system reviewed and no additional complaints, except as documented Cardiovascular: Cardiovascular: Reports no additional cardiovascular complaints Respiratory: Respiratory: Reports no additional respiratory complaints Gastrointestinal: Gastrointestinal: Reports no additional gastrointestinal complaints Musculoskeletal: Musculoskeletal: Reports as per HPI, Reports abnormal gait, Reports stiffness and Reports other ( right leg pain) [facility] Past Medical History Medical History Arthritis Chronic renal insufficiency, stage III (moderate) Diarrhea Elevated PSA Erectile dysfunction Hyperlipidemia Hypertension Migraine Osteoarthritis Prediabetes Surgical History Surgical History H/O arthroscopic knee surgery History of colonoscopy History of elbow surgery History of rotator cuff surgery History of surgery on arm History of tonsillectomy History of vasectomy Family History Family History Father Hypertension Family history of elevated blood lipids Cerebrovascular accident Grandparent Acute myocardial infarction Malignant neoplasm of prostate Mother Family history of lung cancer Social History Social History Smoking status: Never smoker Second hand tobacco smoke exposure: No Alcohol intake: current Drinks per week: 2 Alcohol use details: 3 drinks per month. Substance use: never Substance use type: does not use Lack of Transportation: No Lack of Food: Never True Current Housing: I Have Housing Concerned About Future Housing: No Difficulty Paying Gas/Electric Bills: No Difficulty Paying for Meds: No Currently Unemployed: No Education: Associate Degree Difficulty w/ Childcare or Family Care: No Living arrangements: with family Occupation/Education: retired Gender identity (if verbalized by the patient): Male Sexual Orientation (if Verbalized by the Patient): Straight or Heterosexual Spiritual care concerns: No Agree to blood products: Yes Exam Const: General: cooperative, no acute distress, alert and awake Orientation/consciousness: oriented to person, oriented to place and oriented to time HENMT: Head: normal to inspection Resp: Effort & Inspection: normal respiratory effort and able to speak in complete sentences Auscultation: clear to auscultation bilaterally, no crackles, no rales, no rhonchi and no wheezes Cardio: Palpation: normal PMI Rate: regular rate Rhythm: regular
== END 2023-11-03 12:04 | disposition home or self-care (01) ==
PROVIDERS: Emergency Provider Nurse Practitioner Family; PCP Family Medicine
DX: M54.31 Sciatica, right side (principal); M19.90 Unspecified osteoarthritis, unspecified site; E78.5 Hyperlipidemia, unspecified; I12.9 Hypertensive chronic kidney disease with stage 1 through stage 4 chronic kidney disease, or unspecified chronic kidney disease; N18.30 Chronic kidney disease, stage 3 unspecified; R73.03 Prediabetes
CPT/HCPCS: 99213; G0463

== ENCOUNTER 2024-05-09 11:58 | Outpatient (CLI) | payer MEDICARE, SELFPAY ==
[2024-05-09 13:58] LABS: Basophils Absolute Auto 0.1 K/mm3 (0.0-0.1); Basophils Percent Auto 0.7 % (0.2-1.2); Eosinophils Absolute Auto 0.1 K/mm3 (0-0.3); Eosinophils Percent Auto 1.7 % (0-4.4); Hematocrit 51.6 % (42.0-52.0); Hemoglobin 17.3 g/dL (14.0-18.0); Immature Granulocyte Absolute 0.02 K/mm3 (0.00-0.031); Immature Granulocyte Percent A 0.3 % (0-0.5); Lymphocytes Absolute Auto 2.19 K/mm3 (0.9-3.2); Lymphocytes Percent Auto 30.8 % (18.3-44.2); Mean Corpuscular HGB Conc 33.5 g/dl (32-36); Mean Corpuscular Volume 89.4 fl (80-100); Mean Platelet Volume 9.2 fl (7.4-10.4); Monocytes Absolute Auto 0.8 K/mm3 (0.1-0.6); Monocytes Percent Auto 11.3 % (2.6-8.5); Neutrophils Absolute Auto 3.9 K/mm3 (1.3-6.7); Neutrophils Percent Auto 55.2 % (45.5-73.1); Platelet Count Result 243 k/mm3 (150-375); Red Blood Count 5.77 M/mm3 (4.6-6.20); Red Cell Distribution Width 12.9 % (11.5-14.5); White Blood Count 7.1 K/mm3 (4.5-10.0)
[2024-05-09 14:07] LABS: Urine Cotinine NEGATIVE
[2024-05-09 14:08] LABS: Albumin Level 4.7 g/dL (3.5-5.1)
[2024-05-09 14:09] LABS: Partial Thromboplastin Time 27.3 Seconds (22.3-36.8); Prothrombin Time 13.5 Seconds (11.1-14.7)
[2024-05-09 14:11] LABS: Anion Gap 8 mmol/L (4-12); Blood Urea Nitrogen 18 mg/dL (9-20); Calcium 9.5 mg/dL (8.4-10.2); Carbon Dioxide 29 mmol/L (22-30); Chloride 103 mmol/L (98-107); Estimated Glomerular Filt Rate 58; Glucose 107 mg/dL (65-110); Potassium 4.2 mmol/L (3.4-5.0); Sodium 140 mmol/L (137-145)
[2024-05-09 14:56] LABS: Hemoglobin A1C 5.9 % (<5.7)
[2024-05-09 15:07] LABS: MRSA (PCR) NOT DETECTED (NOT DETECTE)
== END 2024-05-09 11:59 | disposition home or self-care (01) ==
LOC: ANHSURGERY 12:01
PROVIDERS: Anesthesiology; PCP Family Medicine; Visit Provider Orthopaedic Surgery
DX: Z01.812 Encounter for preprocedural laboratory examination (principal); M16.11 Unilateral primary osteoarthritis, right hip; N18.30 Chronic kidney disease, stage 3 unspecified
CPT/HCPCS: 36415; 80048; 80307; 82040; 83036; 85025; 85610; 85730; 86850; 86900; 86901; 87641

== ENCOUNTER 2024-05-19 00:35 | Day surgery (SDC) | payer MEDICARE, SELFPAY ==
[2024-05-09 12:15] VITALS: BP 159/91; PULSE 73; RESP 16; TEMP 36.8; O2SAT 98; BMI 25.2
--- NOTE | 2024-05-09 12:54 | PC.NURSE ---
Report to the Outpatient Waiting Room, entrance under the green pavilion located off [facility], at time ___6:00am____ on date ___05/19/24____. Planned Procedure Time: ____7:30am____.? Time changes happen often and if your time is changed the preop area will call you the afternoon before. - You and your visitor will be asked to self-screen and do not enter if you have any COVID symptoms. Please call surgeon if you need to reschedule. - A mask is optional within the hospital at this time. Patients may have clear liquids (water, carbonated beverages, clear teas, apple juice) until 3 hours prior to surgery with a maximum of 20 ounces. - No food from midnight until time of surgery and no smoking. This includes no chewing gum, candy or mints. Take only the following medications with a SIP of water on the morning of surgery: ___AMLODIPINE DO NOT STOP ANY OF YOUR OTHER PRESCRIPTION MEDICATIONS PRIOR TO SURGERY EXCEPT THE FOLLOWING Medications to discontinue per physician ____HOLD DICLOFENAC PER DR REYES Date to take last dose Please no make-up, nail palestinian, hairspray, perfume, deodorant, or body powder the day of surgery.? No jewelry (including any body piercings) or valuables the day of surgery, leave them at home.? Please take a shower or bath the night before, or the morning of, surgery with an antibacterial soap.? Wear comfortable, loose fitting clothing.? Children are encouraged to wear pajamas. - Jewelry must be removed prior to entering the operating room.? Rings and piercings that are not removed may be cut off. - The hospital will not accept responsibility for valuables.? - Please leave all valuables, including medications, at home the day of surgery. If you are going home after surgery, a licensed owner operator tanker truck driver must drive you home.? - NO public transportation without another adult if you receive anesthesia. - We recommend that an adult stay with you for 24 hours following discharge. - We also recommend that you do not drive, make important decision, drink alcoholic beverages, or take any drugs that were not prescribed by your health care provider for at least 24 hours after your discharge time. Follow any additional instructions given to you from your surgeon. Telephone instructions given to ___PATIENT and asked if any additional questions and then verbalized understanding. Patient advised to call surgeon office or pre surgery nurse liaison [phone] if any additional questions.
--- NOTE | 2024-05-15 07:59 | PM.IMHP ---
H&P: HPI History of Present Illness Date/Time: 05/15/24 07:59 Chief Complaint: Patient has hip pain right. He has grinding crepitus and pain with any manipulation walks with an antalgic gait. He has failed conservative treatment like to proceed with hip replacement surgery on the right. Review of Systems Musculoskeletal: Musculoskeletal: Reports arthralgias, Reports joint swelling and Reports stiffness Neurologic: Reports abnormal gait PMFSH Past Medical History Medical History Torn rotator cuff Sciatic pain Bulging lumbar disc Elevated PSA Chronic renal insufficiency, stage III (moderate) Prediabetes Diarrhea Osteoarthritis Arthritis Migraine Erectile dysfunction Hypertension Hyperlipidemia Surgical History Surgical History History of colonoscopy History of vasectomy History of tonsillectomy History of surgery on arm History of elbow surgery History of rotator cuff surgery H/O arthroscopic knee surgery Family History Family History Father Hypertension Family history of elevated blood lipids Cerebrovascular accident Grandparent Acute myocardial infarction Malignant neoplasm of prostate Mother Family history of lung cancer Ovarian cancer Sibling Skin cancer Lung cancer Social History Social History Smoking status: Never smoker Second hand tobacco smoke exposure: Yes Alcohol intake: current Drinks per week: 2 Alcohol use details: 3 drinks per month. 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 Gender identity (if verbalized by the patient): Male Sexual Orientation (if Verbalized by the Patient): Straight or Heterosexual Spiritual care concerns: No Agree to blood products: Yes Meds Home Medications and Allergies Home Medications ?Medication ?Instructions ?Recorded ?Confirmed ?Type rosuvastatin 5 mg tablet 5 mg PO .Sunday and #30 06/04/23 05/12/24 Rx tabs tadalafil 5 mg tablet 5 mg PO DAILY #90 tabs 12/25/23 05/12/24 Rx amlodipine 5 mg tablet 5 mg PO DAILY #30 tabs 03/31/24 05/12/24 Rx diclofenac sodium 75 mg 75 mg PO BID PRN pain 05/09/24 05/12/24 History tablet,delayed release losartan 25 mg tablet 25 mg PO DAILY #30 tabs 05/12/24 05/12/24 Rx Allergies Allergy/AdvReac Type Severity Reaction Status Date / Time EMELY Inhibitors AdvReac Intermediate Muscle Pain Verified 05/12/24 10:11 nabumetone AdvReac Intermediate Diarrhea Verified 05/12/24 10:11 gabapentin AdvReac Unknown DIFFICULTY Verified 05/12/24 10:11 URINATING Exam Narrative: Patient has limited motion his right hip. His internal rotation 10 external rotation about 30 is a positive Stinchfield test grinding crepitus and pain with manipulation. This repeat pain reproduces the pain that he has on a daily basis. Neurologically he is intact. He walks with an antalgic gait. Eyes: General: appearance normal, both eyes and all related structures Neck: Neck: supple Resp: Effort & Inspection: normal respiratory effort Cardio: Rate: regular rate Rhythm: regular rhythm Radiology Reports: Comments: 03/27/24 11:14 XR hip RT 2V w AP pelvis Routine Interpretation: AP lateral right hip with the pelvis she demonstrates severe degenerative change right hip. No fracture, lesions, or masses are appreciated. The left hip is significantly degenerative as well. This report may have been done utilizing a voice recognition system. Attempts have been made to correct errors. However, there may be uncorrected grammatical, spelling, and recognition errors present. Documented By: Cameron Ly MD 03/27/24 1122 Signed By: <Electronically signed by Cameron Ly MD> 03/27/24 1122 Hip/Pelvis X-Ray 03/27/24 Orthopedics Result Report 03/27/24 Thoracic Spine X-Ray 05/04/21 Assessment and Plan Assessment and plan (1) Osteoarthritis of right hip: Code(s): M16.11 - Unilateral primary osteoarthritis, right hip Status: Acute Assessment and Plan: Patient has an arthritic right hip. This interferes with his activities of daily living and ability to get around. He walks with a limp and has pain with any palpation or manipulation. He is unable to do his normal activities. He would like to proceed with hip replacement surgery. I discussed risks, benefits, limitations, and alternatives with the patient in detail. He understands and agrees would like to proceed. Will proceed with total hip arthroplasty on the right per his request.
[2024-05-19] VITALS (12 sets, daily range): BP systolic 128–170; BP diastolic 65–78; PULSE 70–83; RESP 11–20; TEMP 36–36.8; O2SAT 94–100; BMI 29.9
--- NOTE | ~2024-05-19 | XR_ITS ---
EXAMINATION: XR surgery orthopedic DATE: 05/19/2024 09:04 INDICATION: Intraoperative evaluation during right total hip arthroplasty TECHNIQUE: Frontal view of the right hip was obtained. COMPARISON: None. FINDINGS: Intraoperative image during a right total hip arthroplasty demonstrate placement of an acetabular com ponent which appears in near anatomic alignment on the single image provided. A femoral broach is in place on the initial image with the proximal tip centered over the acetabular component. This been r eplaced with a femoral component on the subsequent image with the arthroplasty appearing well seated in near-anatomic alignment. Portions of the pelvis are obscured by a bolster. No fractures in the vis ualized bones. Mild left hip osteoarthritis. IMPRESSION: 1. Expected appearance during right total hip arthroplasty. Reviewed, dictated and finalized at location B. [employer]CEMENT [employer]ENT
--- OUTSIDE RECORDS SUMMARY | 2024-05-19 00:37 | XMS_ITS | Data Portability ---
Author Organization [place] [facility] [employer], Main Office Address [address] [place] [address] Care Team Providers Care Monitor Technician Name Role Phone GÓMEZ MEDINA Primary Care Provider GÓMEZ MEDINA Referring Provider Assessment Encounter Date Assessment Date Assessment LastModified by Organization Details LastModified Time 01/11/2023 01/11/2023 The patient has what appears to be a traumatic rotator cuff tendon tear of the left shoulder after a sudden heavy load strain. We talked about treatment options today in detail I think we should get an MRI scan as soon as possible to assess the extent of the tear. He has had previous surgical intervention in 2000. Today he was given a course of oral prednisone he will stop the diclofenac milan on the prednisone. We will get the MRI scan. He is also claustrophobic he was given Xanax 0.25 mg to take 30 minutes prior to the MRI repeat x1 if necessary. We will see him back with 1 of the orthopedic surgeons here to review the MRI scan and discuss treatment options after that. He voiced understanding agrees above plan call for any further problems difficulties or questions. [email or web address] Not available 01/11/2023 15:03:48 02/09/2023 02/09/2023 Impression: Patient has rotator cuff pain left shoulder. He does have an articular sided partial thickness tear of the supraspinatus tendon also he has degenerative partial thickness tearing and extensive tendinopathy of the subscapularis tendon more so than the supraspinatus tendon. The I have discussed options with him. He does not have a surgical tear that would be amenable to repair this point. These are degenerative partial tears in the tendon. Over time he may go on to ventrally have a full-thickness rotator cuff tear is not have 1. Unfortunately is not we can for nonsteroidal anti-inflammatory medication. I would recommend a course of physical therapy for him and we will prescribe this. We talked about the option of a cortisone injection he would like to wait on that. He is not sure will be helpful based on his experience. I think it would be reasonable to give him a tapering course of prednisone while he is in physical therapy and see if this helps. I have prescribed 30 of prednisone for 3 days then 20 for 3 days and then 110 mg tablet for 30 days will see if this gives him some relief from the inflammation and pain. I will see him back in 6 weeks to assess his progress. Changes he will call. 40 minutes were spent in total care this patient more than half the time spent in [id number]-mu-ndop care Not available 02/25/2023 18:20:07 03/23/2023 03/23/2023 patient returns. Over the last 6 weeks she has been going to physical therapy and he feels that his range of motion left shoulder actively is much much better. He still has difficulties with strength when he is holding his arm extended out from the side fully. He has excellent strength lifting close to his body. His other complaint is that it is too uncomfortable for him to sleep flat on the bed and he prefers to sleep in a reclining chair and the shoulder will typically wake him up after about 4 hours. Again the previous MRI scan showed lower grade partial thickness tearing of supraspinatus and tendinopathy the subscapularis. He took the prednisone tablets. We avoided use of anti-inflammatory medication nonsteroidal times because of his history of Chronic kidney disease. The prednisone did make him feel floating On exam today he has no redness swelling or warmth about the left shoulder. Minimal tenderness. He has elevation 160 external rotation 60 internal rotation T12 with minimal discomfort. On strength testing and 5/5 strength with belly press subscap liftoff and external rotation with moderate pain with external rotation strength testing. Impression patient has significant tendinopathy and some partial-thickness tearing of supraspinatus tendon left shoulder. He is doing better but is still not asymptomatic. I have discussed him the option of cortisone injection. He would like to avoid that. He notes he had several injections before undergoing arthroscopic acromioplasty and distal clavicle excision years ago and he does not want to mask the pain. he has 1 more visit physical therapy in the would like to have them review the home exercise program he should do long-term for maintenance and I have discussed with him that if his symptoms worsen again in the would like cortisone shot we can see him at any point to try that. I will see him back as needed. 20 minutes were spent total care this patient more than half the time spent in [id number] Not available 03/23/2023 10:35:43 04/27/2023 04/27/2023 HPI: Patient returns. His left shoulder is still bothering him. It is sore and he has difficulty sleeping at night. He has some soreness and pain with overhead activities. He has gone through physical therapy. He did take a Medrol Dosepak. He had an MRI scan which showed diffuse tendinopathy without definite full-thickness tear in the rotator cuff tendon. He aggravated it 4 months ago when he was trying to lift plywood on to a remove. Last time he was here the option cortisone injection was discussed at that time patient was trying to avoid it. At this point he feels that his symptoms have plateaued since he is not able take anti-inflammatori es due to chronic kidney disease he wished to try an injection. Physical exam: 73-year-old male alert pleasant. He has active elevation to 145 external rotation 80 internal rotation is T12. Mild discomfort with range of motion. Mild weakness with abduction and relatively good external rotation strength. After ChloraPrep used on skin 20 mg Kenalog and 3 cc of 0.5% ropivacaine was injected into left subacromial space. Risk of infection discussed. Immediately following the injection patient noticed dramatic improvement of his symptoms and was able to completely elevate the shoulder without any symptoms. Impression: 73-year-old male has tendinopathy of his left rotator cuff tendon. I discussed with him that I would not recommend multiple injections in the shoulder as this could soften the tendon and cause further degeneration and tearing of tendon. He understands. He should still continue to do his home exercise program as well as modify activities to avoid over stressing the shoulder and he will keep that mind. At this point we will see him back as needed. 20 minutes was spent in treatment patient more than half of this in [id number] conversation [email or web address] Not available 04/27/2023 12:49:40 08/08/2023 08/08/2023 HPI: Patient returns. His left shoulder has been bothering him again. He had a cortisone injection in subacromial space in early April of this year. He states for 2 months he had absolutely no symptoms. He had a previous MRI scan done last year which showed tendinopathy without definite tearing of the rotator cuff tendon. Patient has chronic kidney issues and therefore not a candidate for anti-inflammatori es. Patient states that he has a has been using the shoulder more since it was feeling better. 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 His pain is over the lateral deltoid. He has pain with abduction of the shoulder. He also has pain with trying to turn a steering wheel with the left arm. He has pain at night while sleeping. He has to get in a very specific position so that he does not have symptoms in the shoulder. Physical exam: Patient has active elevation to 150? ? ? external rotation 80 internal rotation is T12. He has some minor discomfort with range of motion. He is good strength with external rotation and just trace weakness with abduction. Impression: Patient has tendinopathy of left rotator cuff tendon seen on the MRI scan. He had excellent resolution of his symptoms following cortisone injection in April. However I think that he overused the shoulder causing him to have symptoms now. He does not have any rest pain symptoms and overall his symptoms are not severe. We talked about options. He did try a Medrol Dosepak in the past which she declined. He feels he gets very jittery when he takes this and would like to avoid that. We talked briefly about repeat cortisone injection. I reminded him that multiple injections in the shoulder could cause softening and tendon and further degradation of the tendon. We talked about modification of activities which I think is what needs to be done in his situation. He is getting ready to go on vacation and is going to be gone for about 10 days and then is going to completely avoid using the shoulder to see if this improves his symptoms. He declined the shot. He states he did come in more for options of ways that he could try to help himself and we discussed all these as well. I will see him back as needed. 20 minutes was spent in treatment the patient more than half of this in hohr-ga-xsjr conversation [email or web address] Not available 08/08/2023 10:21:14 Plan of Treatment Reminders Order Date Submit Date Provider Last Modified By Organization Details Last Modified Time Details Appointments None recorded. Lab None recorded. Referral physical therapist referral - FOLLOW ATTACHED ORDER 2022 023 [email or web address], [address], [place], [address], 12:24:16 Procedures injection/a spiration joint/bursa (PROC) - in office procedure, administere d by provider 2023 024 [email or web address] In-Office Order, Internal Use Only DO Not Attach Compendium DO Not Attach Compendium, Do Not Delete/merge, [id number] 4 12:39:39 Surgeries None recorded. Imaging XR, shoulder 2022 023 [email or web address] [facility] [place], [address], [place], [address], 15:40:32 MRI, shoulder, w/o contrast 2022 023 [email or web address] [facility], [address], [place], [address], 16:41:11 Medication Orders prednisone 10 mg tablets in a dose pack 2022 023 [email or web address] [facility], [address] [facility] [address] [place] [address], [address], 10:11:00 Xanax 0.25 mg tablet 2022 023 [facility], [address] [facility] [address], [place], [address], 10:52:11 prednisone 10 mg tablets in a dose pack 2022 023 [facility] [address], [address], [address], 3 10:11:00 Kenalog 10 mg/mL suspension for injection [address] [place] [address] Pharm[facility] [address], [address], [address], 4 18:35:44 ropivacaine (PF) 5 mg/mL (0.5 %) injection solution [address] [facility] [address], [address], [address], 4 18:35:44 Patient TargetsNo targets recorded. Patient InstructionsNo instructions recorded. Reason for Referral Physical Therapist Referral for Pain of left shoulder joint FOLLOW ATTACHED ORDER Referring Physician: Elgin Downing, Orthopedic Surgery, Encounter Date: 02/09/2023 Results Created Date Observation Date Name Description Value Unit Range Abnormal Flag Note LastModifiedBy Organization Detail LastModifiedTime 01/12/20 23 XR, shoul adilia No observ ation record ed. [email or web address] [facility] [place] [address] [facility] [address], [place], [address], 01/11/2023 15:04:44 01/16/20 23 MRI shoul adilia lt wo [facility] [address] [address] Patien t Name: HANNAH JAMES Access ion #: [id number] Sex: M : 1949 Dictat ed By: Frank reyes Attend ing Physic sourav: , Kiara baldwin Physic sourav: EDUARDA RAPP Exam Date: 2022 07:43 AM Exam Name: MRI SHOULD ER LT WO Admitt ing Diagno sis(es ): CLINIC AL INFORM ATION: Left should er pain. Limite d range of motion . Injury liftin g someth ing heavy. TECHNI ELANA INFORM ATION: Multis equenc e multip lanar MRI images of the left should er were obtain ed withou t contra st. Examin ation was perfor med on an open MRI scanne r with 0.3 Elina magnet , limiti ng evalua tion compar ed to higher field streng th MRI scanne rs. COMPAR ELYSIA: None. FINDIN GS: Acromi oclavi cular joint: There is mild acromi oclavi cular hypert rophy and mild edema. There is Type 2 acromi on. Small amount of fluid in the subacr omial/ subdel toid bursa. Rotato r cuff tendon s: Mild to modera te tendin osis of the distal supras pinatu s and infras pinatu s tendon s. Partia l-thic kness tear at the insert ional footpr int of the supras pinatu s tendon , appear s to be an inters titial tear, althou gh commun icatio n with the articu lar surfac e cannot be comple tely exclud ed given the limita tions of the exam. Articu lar surfac e frayin g and possib le small partia l-thic kness articu lar surfac e tear of the distal subsca pulari s tendon . Teres minor tendon appear s intact . Biceps tendon : No signif icant tendin osis. No eviden ce of attrit ion or tear. Labrum : No labral tear identi fied. Bones: No fractu re or focal marrow contus ion. Muscle s: Normal muscle bulk. No atroph y. Other: No other signif icant findin gs. IMPRES JOSE: 1. Rotato r cuff tendin osis with partia l-thic kness tear of the distal supras pinatu s tendon as descri bed above. 2. Articu lar surfac e frayin g and possib le small partia l-thic kness articu lar surfac e tear of the distal subsca pulari s tendon . Page 1 [facility] [address] [facility] [address] [facility], [place] [address] [phone] Patien t Name: HANNAH JAMES ion #: [id number] Sex: M : 1949 Dictat ed By: Frank reyes Attend ing Physic sourav: Kiara Physic sourav: EDUARDA RAPP Exam Date: 2022 07:43 AM Exam Name: MRI SHOULD ER LT WO Admitt ing Diagno sis(es ): 3. Mild acromi oclavi cular hypert rophy with mild subacr omial/ subdel toid bursit is. Electr onical ly Signed by: Frank reyes at 2022 15:06: 48 PM Page 2 [email or web address] [facility] ([facility]) [address] [place], [address], 01/15/2023 16:40:43 Result Notes None recorded. 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 null, [place] [facility] 3 14:37:44 Traumatic rupture of rotator cuff 673183635 Active 2022 BHANU Woodward [address] [facility], [facility] [address], [place], [address] [facility] [place] [facility] 3 15:05:54 Rupture of rotator cuff of left shoulder 86908635700876 102 Active 2022 HEENA Talbot, [place] [facility] 3 10:11:59 Partial thickness rotator cuff tear 560491434 Active 2023 HEENA Talbot, [place] [facility] 4 12:15:53 Problem Notes None recorded. Procedures Surgical History Date Name Laterality Status Provider Name and Address Organization Details Recorded Time Shoulder completed Yari Enmanuel, METAL CUT OFF SAW OPERATOR [place] [facility] 01/11/2023 14:36:15 Shoulder completed Yari Enmanuel, METAL CUT OFF SAW OPERATOR [place] [facility] 01/11/2023 14:36:21 Knee completed Yari QuarlesJANE hernandezA [place] [facility] 01/11/2023 14:36:35 Knee completed Yari Quarlesdavid METAL CUT OFF SAW OPERATOR [place] [facility] 01/11/2023 14:36:42 procedure on elbow completed Yari Quarlesdavid METAL CUT OFF SAW OPERATOR [place] [facility] 01/11/2023 14:37:00 Imaging Results Imaging Date Name Status LastModified by Organiz ation Details LastModified Time 01/11/2023 XR, shoulder completed [email or web address] [facility] [place] [address], [place], [address], 01/11/2023 15:04:44 01/15/2023 MRI shoulder lt wo completed [email or web address] [facility] ([facility]) [address] [place], [address], 01/15/2023 16:40:43 Procedure Notes None recorded. Medical Equipment None Reported. Medications Name Sig Start Date Stop Date Status Note LastModified by Organization Details LastModified Time prednisone 10 mg tablet TAKE 1 TABLET BY MOUTH THREE TIMES DAILY FOR 3 DAYS THEN 1 TWICE DAILY FOR 3 DAYS THEN 1 ONCE DAILY FOR 30 DAYS 03/23 completed Not Available Not Available Not Available doxycycline hyclate 100 mg capsule TAKE 1 CAPSULE BY MOUTH TWICE DAILY 01/11 completed Not Available Not Available Not Available cetirizine 10 mg tablet TAKE 1 TABLET BY MOUTH ONCE DAILY 01/11 completed Not Available Not Available Not Available indapamide 2.5 mg tablet TK 1 T PO QD 01/11 completed Not Available Not Available Not Available prednisone 20 mg tablet 01/11 completed Not Available Not Available Not Available simvastatin 10 mg tablet 01/11 completed Not Available Not Available Not Available amlodipine 5 mg tablet active Not Available Not Available Not Available prednisone 10 mg tablets in a dose pack Take 1 tab by mouth, 3 times a day for 3 daysTake 1 tab by mouth 2 times a day for 3 daysTake 1 tab by mouth once a day for 30 day 03/23 completed Not Available Not Available Not Available amoxicillin 875 mg tablet TAKE 1 TABLET BY MOUTH EVERY 12 HOURS FOR 10 DAYS active Not Available Not Available No t Available alprazolam 0.25 mg tablet TAKE 1 TABLET BY MOUTH 30 MINUTES PRIOR TO PROCEDURE . REPEAT IF NEEDED 02/09 completed Not Available Not Available Not Available Kenalog 10 mg/mL suspension for injection in office [address] [facility]: [phone] Not Available Not Available Not Available benzonatate 100 mg capsule TAKE 1 CAPSULE BY MOUTH THREE TIMES DAILY NEEDED FOR COUGH 01/11 completed Not Available Not Available Not Available simvastatin 20 mg tablet 01/11 completed Not Available Not Available Not Available losartan 25 mg tablet TK 1 T PO D 01/11 completed Not Available Not Available Not Available irbesartan 75 mg tablet active Not Available Not Available Not Available diclofenac sodium 75 mg tablet,juliette yed release TAKE 1 TABLET BY MOUTH TWICE DAILY NEEDED FOR PAIN 02/09 completed Not Available Not Available Not Available fluticasone propionate 50 mcg/actuati on nasal spray,suspe nsion USE 1 SPRAY(S) IN EACH NOSTRIL TWICE DAILY 02/09 completed Not Available Not Available Not Available amoxicillin 875 mg-potassiu m clavulanate 125 mg tablet TAKE 1 TABLET BY MOUTH TWICE DAILY 01/11 completed Not Available Not Available Not Available rosuvastati n 5 mg tablet TAKE 1 TABLET BY MOUTH ONCE DAILY SUNDAY AND SUNDAY active Not Available Not Available No t Available tadalafil 5 mg tablet TAKE 1 TABLET BY MOUTH ONCE DAILY active Not Available Not Available No t Available ropivacaine (PF) 5 mg/mL (0.5 %) injection solution in office 2023 active Not Available Not Available Not Mirtha Raygoza COVID-19 Ag Self Test kit Use as Directed on the Package 01/11 completed Not Available Not Available Not Available Vitals Date Recorded Body height Body mass index (BMI) Body weight Provider Name and Address Organization Details Last Updated DateTime 01/11/2023 182.88 cm 25.1 kg/m2 64191.59 g Yari Singer CNA [facility] [employer] 01/11/2023 14:32:34 Date Recorded Body height Provider Name an d Address Organization Details Last Updated DateTime 02/09/2023 182.88 cm HEENA Talbot [facility] [employer] [facility] 02/09/2023 10:51:44 Date Recorded Body height Provider Name an d Address Organization Details Last Updated DateTime 03/23/2023 182.88 cm Candice Hayes [facility] 03/23/2023 10:10:47 Date Recorded Body height Provider Name an d Address Organization Details Last Updated DateTime 04/27/2023 182.88 cm Candice Hayes [facility] 04/27/2023 12:15:15 Date Recorded Body height Provider Name an d Address Organization Details Last Updated DateTime 08/08/2023 182.88 cm Candice Hayes [facility] 08/08/2023 09:18:55 Social History Question Answer Notes LastModified by Organizat ion Details LastModified Time Tobacco Smoking Status Never Smoker [facility]ari [facility]JANE [facility] 01/11/2023 14:35:49 What Is Your Level Of Alcohol Consumption? Occasional [email or web address] Information not available 01/11/2023 Sex: Unknown Functional Status None recorded. Mental Status None recorded. Family History Relationship Description Onset Age of this Age Resolved Age Notes LastModified by Organization Details LastModified Time Father Family history of stroke [email or web address] Not available 2022 14:34:36 Mother Family history of malignant neoplasm [email or web address] Not available 2022 14:34:47 Medical History No medical history recorded. Past Encounters Encounter ID Performer Location Encounter Start Date Encounter Closed Date Diagnosis/Indication Diagnosis SNOMED-CT Code Diagnosis ICD10 Code Diagnosis Note [id number] BHANU Woodward [facility] [place] [address] [place] [address] 01/11/2023 14:14:58 01/11/2023 15:00:25 Pain of left shoulder joint 7993708524 2662197 M25.512 Traumatic rupture of rotator cuff 387481314 S46.092A [id number] Elgin Downing MD [facility] [place] [address] [place] [address] 02/09/2023 10:32:12 02/26/2023 09:56:13 Pain of left shoulder joint 7211378906 7239382 M25.657 [id number] Elgin Downing MD [facility] [place] [address] [place] [address] 03/23/2023 10:05:30 03/23/2023 10:36:10 Rupture of rotator cuff of left shoulder 0400049667 5263293 M75.937 [id number] BHANU Tucker [facility] [place] [address] [place] [address] 04/27/2023 12:11:25 04/27/2023 13:14:14 Partial thickness rotator cuff tear 120151780 M75.995 [id number] BHANU Tucker [facility] [place] [address] [place] [address] 08/08/2023 09:15:45 08/08/2023 10:32:16 Partial thickness rotator cuff tear 347330514 M75.102 Health Concerns Section Related Observation LastModified by Organization Detai ls LastModified Time None Recorded Concern Status LastModified by Organization Details LastModified Time None Recorded Advance Directives Directive None Recorded Payers Encounter Date Sequence Insurance Name Policy Number Policy Butcher Covered Member ID Butcher Member ID Guarantor Name 01/11/2023 1 [facility] - [employer] - [employer] - MEDICARE COMPLETE PLAN 2 (MEDICARE REPLACEMENT HMO) [id number] Hannah Rodrigues [id number] Hannah Rodrigues 02/09/2023 1 [facility] - [employer] - [employer] - MEDICARE COMPLETE PLAN 2 (MEDICARE REPLACEMENT HMO) [id number] Hannah Rodrigues [id number] Hannah Rodrigues 03/23/2023 1 C - [employer] - [employer] - MEDICARE COMPLETE PLAN 2 (MEDICARE REPLACEMENT HMO) [id number] Hannah Rodrigues [id number] Hannah Rodrigues 04/27/2023 1 C - [employer] - [employer] - MEDICARE COMPLETE PLAN 2 (MEDICARE REPLACEMENT HMO) [id number] Hannah Rodrigues [id number] Hannah Rodrigues 08/08/2023 1 [facility] - [employer] - [employer] - MEDICARE COMPLETE PLAN 2 (MEDICARE REPLACEMENT HMO) [id number] Hannah Rodrigues [id number] Hannah Johnsonall Notes Date Note Type Note Provider Name and Address Organization Details Recorded Time 01/11/2023 text/html The patient is a 72-year-old male who suffered an injury to his left shoulder 3 weeks ago. He was helping lift a heavy sheet of plywood upon to a roof the other person lost control of their end and he ended up having a sudden strain to his left shoulder. He had immediate pain that has been persistent since then. For a couple of weeks he states he really can not even raise his left arm. Now he is to the point where if he fights through the pain he can get it up overhead but this causes significant pain particularly with abduction or full forward flexion overhead. He has full active and passive motion no evidence of a frozen shoulder. Did not develop any swelling or ecchymosis after the injury. He has pain that radiates from the shoulder into the upper arm. He states it feels similar to many years ago prior to having a left shoulder surgery for acromioplasty distal clavicle excision and from what sounds like a small debridement and rotator cuff repair. He was doing well until this new injury he has aching pain about a 5 on a scale 1-10. He has tried some diclofenac without full relief he gave him moderate relief but continues to have some dysfunction with weakness. Can not do anything heavy repetitive. He comes in today for initial evaluation treatment of his left shoulder pain as described.Past medical history sheet was reviewed and signed on the intake sheet today's date drug allergies current medications family social history previous surgical history 10 point review of systems was reviewed and discussed in detail today with the patient. BHANU Woodward [address] [facility] [address], [place], [address], [place] [employer] 01/11/2023 15:06:34 02/09/2023 text/html patient is a 72-year-old gentleman referred by Dr. Medina for evaluation of his left shoulder. Earlier and December approximately 5 or 7 weeks ago, he was lifting some plywood onto the roof and had pain on the top of his shoulder and weakness. He was switching from a palm up position to putting his homes under the plywood and while doing this the weight of the plywood shifted to him from the other person who did not have adequate control of this heavy 5 /8 inch 4 x 8 ft plywood sheet. Prior to this he was having no problems. 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 Since this time he has been having terrible pain at night especially. He can only tolerate 2 hours in bed. He took a course of prednisone that taper gradually over about 8 or 9 days starting on 01/11/2023. He has been sleeping in the chair to compensate. His past history is significant for arthroscopic acromioplasty and distal clavicle excision by Dr. Brannon in approximately 2002 or 2004 and he developed severe stiffness after the surgery and had to use a CPM machine and somehow the CPM machine resulted him developing problems with his elbow and he subsequently had incisions over the lateral elbow and over the pronator teres which might be related to decompression of the pronator tunnel and the radial tunnel perhaps. He had x-rays of left shoulder on 01/11/2023. The and of the distal clavicle is diminished in size and it looks like he had bring of the inferior osteophytes. The acromioclavicular joint space looks normal. It is possible that he had a distal clavicle excision based on its appearance with subsequent bony overgrowth of lateral and the clavicle which I think is more likely than partial incomplete excision. The acromion is prominently thin and from acromioplasty. There is no evidence of acromial fracture or superior migration on these two views. This was a standard AP and Y-view only so we cannot describe the glenohumeral joint space well on these images. MRI scan was obtained on 12/26/2022 and I reviewed the images and I reviewed the radiologist's report. There is evidence of low-grade articular sided partial-thickness tearing of the supraspinatus tendon image 4-14 and little bit on 4- 13 and 4-15. There is significant supraspinatus tendinopathy present. The long of the biceps is visualize in the bicipital groove but I cannot describe well the intra-articular portion of long of the biceps. Articular sided partial-thickness tearing and significant tendinopathy is noted at the insertion of the subscapularis. No evidence of fracture. Images were reviewed with patient. He does take diclofenac rarely. He takes about 1 or 2 pills per year. Patient has history of chronic kidney disease due to years of use of ibuprofen. I discussed with him that diclofenac if taken frequently could further damage his kidneys. He has tried cortisone shots in the past. He had 3 of them prior to his arthroscopic surgery left shoulder back in 2004 and each time his symptoms only helped for about a month in the came back. Elgin Downing MD [address] [place] [address], [place] [address], [place], [address], [place] - [facility] 02/25/2023 18:20:24
--- OUTSIDE RECORDS SUMMARY | 2024-05-19 00:37 | XMS_ITS | Continuity of Care Document ---
Author Organization [facility] Address [address] [place] [address] [address] [place] [address] Phone Care Team Providers Care Enzyme Chemist Name Role Phone Prasad OD, [place] Unavailable Unavailable Procedures Procedure Date Eye Exam & Treatment Refraction Eye Exam & Treatment Refraction Advance Directives Directive Yes / No Effective Date File Name No Information Encounters Encounter Description Practice Location Reason(s) For Visit Diagnoses Date Provider Providers Copied on Encounter [facility], [address] [place] [address] [address], [place], [place], [id number], tel:[phone] [facility] No Information 5-200 9 Prasad OD [place]. [address] , [address], [place], [place], [facility], [place]. tel:[phone] [facility], [address] [place] [address] [address], [place], [place], [id number], tel:[phone] [facility] No Information 3-200 7 Prasad OD [place]. [address] , [address], [place], [place], [facility], . tel:[phone] Family History Family Member Type Diagnosis Age At Onset No Information Payers Payer name Insurance type Covered green party ID Authorjordana emileeuri(s) [facility] Commercial CI [id number] Social History Type Description Quantity Date Captured Comments Sex Male Smoking Status No Information Chief Complaint And Reason For Visit No Information Reason For Referral Reason For Referral No Information History Of Present Illness Encounter Date Complaint History Of Prese nt Illness No Information Functional Status Date Functional Assessmen t No Information Instructions Date Instruction Additional Infor mation No Information Assessments Type Assessment Date No Information Patient Care Teams Name Effective Dates (start - stop) Status Members No Information
--- OUTSIDE RECORDS SUMMARY | 2024-05-19 00:37 | XMS_ITS | Clinical Summary ---
Author Organization [facility] Address [address] [place] [address]. [place] [address] [place] [address] Care Team Providers Care Thinner Sprayer Name Role Phone Unavailable Primary Care Provider Unavailabl e Social History Tobacco Use Types Packs/Day Years Used Date Smoking Tobacco: Never Assessed Sex and Gender Information Value Date Recorded Sex Assigned at Not on file Legal Sex Male 6:03 PM CDT Gender Identity Not on file Sexual Orientation Not on file Plan of Treatment Health Maintenance Due Date Last Done Comments Colorectal Cancer Screening Colonoscopy (10 Years) 1949 Hepatitis C 1967 DTaP, Tdap and Td Vaccines ( 1 - Tdap) 1968 Zoster Vaccines (1 of 2) 1999 Pneumococcal Vaccine: 65+ Ye ars (1 of 1 - PCV) 2014 COVID-19 Vaccine ( - 2023-2 5 season) 2023 Influenza Adult (#1) 2024 RSV Immunization or 60+ Years (1 - 1-dose 75+ series) 2024 Meningococcal B Vaccine Aged Out No l onger eligible based on patient's age to complete this topic Meningococcal Vaccine Aged Out No milagros azeem eligible based on patient's age to complete this topic RSV Immunizations Under 20 Months Aged Out No longer eligible based on patient's age to complete this topic
--- OUTSIDE RECORDS SUMMARY | 2024-05-19 00:37 | XMS_ITS | Clinical Summary ---
Author Organization [facility] Address [address] [place] [address] Phone Care Team Providers Care Gluing Pressman Name Role Phone Michelle Moran MD Primary Care Provider [phone] Allergies No known active allergies Medications Medication Sig Dispensed Refills Start Date End Date Status tadalafil (CIALIS) 5 MG tablet Take 5 mg by mouth 1 (one) time each day 3 01/31/2019 Active indapamide (LOZOL) 2.5 MG tablet 08/27/2018 Active pravastatin (PRAVACHOL) 20 MG tablet Take 20 mg by mouth 1 (one) time each day Active Active Problems Problem Noted Date Diagnosed Date Disorder of refraction 01/07/2019 Overview (03/03/2019): Last Assessment & Plan: VA excellent without correction, to see regular embossing press operator apprentice for glasses prn Bilateral age-related nuclear cataracts 12/18/19 19 Overview (03/03/2019): Last Assessment & Plan: NVS, observe Posterior vitreous detachment of right eye 12/17 Overview (03/03/2019): Last Assessment & Plan: see PVD above for follow-up plan Seen in ED 12/02/18, no RD or tears noted on depressed exam Still with photopsias OD 12/17, no RD or tears noted on depressed exam Photopsias OD decreasing in frequency at visit 01/07 Last Assessment & Plan: No tears noted today on third depressed exam Okay for patient to follow-up in six months with outside embossing press operator apprentice RTC PRN with worsening symptoms, patient educated about worsening flashing lights, floaters, vision loss, etc. Family History Medical History Relation Comments Hyperlipidemia Father Hypertension Father Stroke Father Kidney disease Neg Hx Nephrolithiasis Neg Hx Relation Status Comments Father Social History Tobacco Use Types Packs/Day Years Used Date Smoking Tobacco: Never Smokeless Tobacco: Never Alcohol Use Standard Drinks/Week Comments Yes 0 (1 standard drink = 0.6 oz pur e alcohol) occassional use Sex and Gender Information Value Date Recorded Sex Assigned at Not on file Gender Identity Not on file Sexual Orientation Not on file Last Filed Vital Signs Vital Sign Reading Time Taken Comments Blood Pressure 144/86 03/03/2019 10:07 AM [facility] Pulse - - Temperature 36.8 ??C (98.2 ??F) 03/03/2019 10:[address] Respiratory Rate - - Oxygen Saturation - - Inhaled Oxygen Concentration - - Weight 82.6 kg (182 lb) 03/03/2019 10:07 AM [facility] Height 182.9 cm (6') 03/03/2019 10:07 AM [facility] Body Mass Index 24.68 03/03/2019 10:07 AM [facility] Plan of Treatment Health Maintenance Due Date Last Done Comments Pneumococcal PPSV23/PCV13 65 + Years / Low and Medium Risk (1 of 4 - PCV) 2014 Influenza Vaccine (#1) 2023 Care Teams Gluing Pressman Relationship Specialty Start Date End Date Michelle Moran MD [address] [place] [address] PCP - General Internal Medicine 02/04/19
[2024-05-19] MEDS: ACETAMINOPHEN 500 MG TABLET 1000 MG PO (06:25)
[2024-05-19] MEDS: VANCOMYCIN 1,250 MG/NS 250 ML BAG 166.67 MG IVPB (06:30)
[2024-05-19] MEDS: LACTATED RINGERS 1,000 ML 30 ML IV CONT ×2 (06:30→09:31)
[2024-05-19] MEDS: TRANEXAMIC ACID 1,000MG/ISO100 1,000 MG/100 ML BAG 200 MG IVPB (06:30)
--- NOTE | 2024-05-19 06:53 | WPDHPUPDATE1 ---
History and Physical Update Update Date/Time: 05/19/24 06:53 History and Physical has been reviewed, including an updated exam of the patient. There are NO changes in the patient's condition. Risks, benefits, and alternatives have been discussed and questions answered. Patient agrees to proceed with procedure.
--- NOTE | 2024-05-19 06:57 | P.PNAN_ITS ---
Anes - Initial Pre Proc Eval Procedure: Operation Date: 05/19/24 07:30 Proposed Procedures p Right Total Hip Arthroplasty - Cameron Ly MD Date/Time: 05/19/24 06:57 Surgeon: Cameron Ly MD Pre Op Diagnosis: OA right hip Patient Data Age: 74 Gender: M Height: 1.83 m Weight: 85.4 kg Last Vital Signs Temp 36.8 C 05/19/24 06:07 Pulse 70 05/19/24 06:07 Resp 16 05/19/24 06:07 BP 170/78 H 05/19/24 06:07 Pulse Ox 99 05/19/24 06:07 O2 Del Method Room Air 05/19/24 06:07 Allergies Allergy/AdvReac Type Severity Reaction Status Date / Time EMELY Inhibitors AdvReac Intermediate Muscle Pain Verified 05/19/24 06:40 nabumetone AdvReac Intermediate Diarrhea Verified 05/19/24 06:40 gabapentin AdvReac Unknown DIFFICULTY Verified 05/19/24 06:40 URINATING Home Medications ?Medication ?Instructions ?Recorded ?Confirmed ?Type rosuvastatin 5 mg tablet 5 mg PO .Sunday and #30 06/04/23 05/19/24 Rx tabs tadalafil 5 mg tablet 5 mg PO DAILY #90 tabs 12/25/23 05/12/24 Rx amlodipine 5 mg tablet 5 mg PO DAILY #30 tabs 03/31/24 05/19/24 Rx diclofenac sodium 75 mg 75 mg PO BID PRN pain 05/09/24 05/19/24 History tablet,delayed release losartan 25 mg tablet 25 mg PO DAILY #30 tabs 05/12/24 05/19/24 Rx Patient hx anesthesia problems: none Family hx anesthesia problems: none Results Review: All pre-operative results and documents have been reviewed as part of the pre- operative evaluation. [facility] Past Medical History Medical History Torn rotator cuff Sciatic pain Bulging lumbar disc Elevated PSA Chronic renal insufficiency, stage III (moderate) Prediabetes Diarrhea Osteoarthritis Arthritis Migraine Erectile dysfunction Hypertension Hyperlipidemia Surgical History Surgical History History of colonoscopy History of vasectomy History of tonsillectomy History of surgery on arm History of elbow surgery History of rotator cuff surgery H/O arthroscopic knee surgery Family History Family History Father Hypertension Family history of elevated blood lipids Cerebrovascular accident Grandparent Acute myocardial infarction Malignant neoplasm of prostate Mother Family history of lung cancer Ovarian cancer Sibling Skin cancer Lung cancer Social History Social History Smoking status: Never smoker Second hand tobacco smoke exposure: Yes Alcohol intake: current Drinks per week: 2 Alcohol use details: 3 drinks per month. 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 Gender identity (if verbalized by the patient): Male Sexual Orientation (if Verbalized by the Patient): Straight or Heterosexual Spiritual care concerns: No Agree to blood products: Yes Anes - Eval Final PreProcedure Day of Procedure 05/19/24 06:57 Patient weight: normal Heart: regular rate and rhythm Lungs: clear to auscultation Airway: Mallampati scale class II Neurological: alert and oriented Last oral intake: >/= 8 hours ASA classification: III Emergent: no Anesthetic plan: proceed Anesthesia type and monitoring: general ETT and standard monitoring Results Review: All pre-operative results and documents have been reviewed as part of the pre- operative evaluation. Informed Consent: The patient's anesthetic plan and its attendant risks and benefits were discussed with the patient/family/POA. Questions were solicited and answers provided to the satisfaction of the patient/family/POA.
[2024-05-19] MEDS: ceFAZolin 2 GM/D5W 50 ML 2 GM/50 ML BAG IVPB ×3 (07:20→22:20)
[2024-05-19] MEDS: BUPIVACAINE/EPINEPHRINE 0.5% 50 ML VIAL 30 ML INFILTRATE (08:02)
--- NOTE | 2024-05-19 08:58 | W.PM.PROC2 ---
Procedure Note - Detailed Date of Procedure 05/19/24 Pre-op Diagnosis Osteoarthritis RIGHT hip Post-op Diagnosis Same Procedure Performed RIGHT total hip arthroplasty Surgeon Cameron Ly MD Anesthesia General Indications Pain and Arthritis Description of Procedure Patient was brought to the operating room #8, and an anesthetic was administered. The patient was placed with the operative Hip up and sterilely prepped and draped in the usual manner. A longitudinal incision was performed. Dissection was carried down to the fascia. A Hardinge type approach was used and the femoral head was dislocated anteriorly. The Femoral head was removed a finger breath above the lesser trochanter. The acetabulum was serially reamed to accept a 56 component. This was impacted into place and secured with 2 25mm screws. A high wall liner was placed. The femur was reamed and broached to accept a component which was impacted into place. A minus 6 head and neck were placed and the hip was put through full range of motion. The hip was noted to be stable. The wounds were then closed in a layered fashion using #5 ethibond, 2 vicryl, 2-0 vicryl and claudine. Patient left the operating room in satisfactory condition. [employer] Victor M Multihole Acetabulum Estimated Blood Loss 400 Drains No Packing No Pathology None sent Complications No immediate complications Condition Stable Disposition PACU [facility] Billing Surgery - Charge Forward: Surgery Billing (38038 Total Hip)
[2024-05-19] MEDS: fentaNYL CITRATE INJ (*CRX) 100 MCG/2 ML VIAL 25 MCG IV PUSH ×8 (09:51→10:36)
[2024-05-19] MEDS: ONDANSETRON INJ 4 MG/2 ML VIAL IV PUSH ×2 (11:34→14:43)
[2024-05-19] MEDS: HYDROcodone/acetaminophen (*CRX) 5-325 MG TABLET 1 TAB PO ×2 (11:35→23:10)
--- NOTE | 2024-05-19 12:51 | P.CONIM_ITS ---
Assessment and Plan Assessment and plan (1) Osteoarthritis of right hip: Code(s): M16.11 - Unilateral primary osteoarthritis, right hip Status: Acute Assessment and Plan: Status post right total hip 05/19/2024 Ortho is primary Pain management per Ortho Okay for regular diet Xarelto for VTE Stool soft (2) Hypertension: Qualifiers: Hypertension type: essential hypertension Qualified Code(s): I10 - Essential (primary) hypertension Code(s): I10 - Essential (primary) hypertension Status: Acute Assessment and Plan: Okay to hold meds while in hospital (3) Hyperlipidemia: Qualifiers: Hyperlipidemia type: mixed hyperlipidemia Qualified Code(s): E78.2 - Mixed hyperlipidemia Code(s): E78.5 - Hyperlipidemia, unspecified Status: Acute Assessment and Plan: Okay to hold meds while in hospital (4) Chronic renal insufficiency, stage III (moderate): Code(s): N18.30 - Chronic kidney disease, stage 3 unspecified Status: Acute Assessment and Plan: A.m. labs HPI Date of Consult Consult date: 05/19/24 Requesting Physician: Cameron Ly MD Primary Care Provider: Leny Medellin MD Consult Narrative Reason for consult: Medical management Narrative: Logan Rodrigues is a 74 year old male with CKD stage 3, hypertension hyperlipidemia and chronic pain in the right hip presents the hospital today for elective total right hip replacement. Hospitalist team has been consulted for medical management. Patient states that his pain is still even increasing, which is likely due to the nerve block wearing off. He states the pain management is helping. His nausea is improving and he was able to work with PT and OT. Patient is doing great on his incentive spirometer. While he is in the hospital he does not want to take his statin or blood pressure meds. His blood pressure is adequate. Review of Systems Review of Systems: 12 systems were reviewed and are negativ e except for as per HPI. [facility] Past Medical History Medical History Torn rotator cuff Sciatic pain Bulging lumbar disc Elevated PSA Chronic renal insufficiency, stage III (moderate) Prediabetes Diarrhea Osteoarthritis Arthritis Migraine Erectile dysfunction Hypertension Hyperlipidemia Surgical History Surgical History History of colonoscopy History of vasectomy History of tonsillectomy History of surgery on arm History of elbow surgery History of rotator cuff surgery H/O arthroscopic knee surgery Family History Family History Father Hypertension Family history of elevated blood lipids Cerebrovascular accident Grandparent Acute myocardial infarction Malignant neoplasm of prostate Mother Family history of lung cancer Ovarian cancer Sibling Skin cancer Lung cancer Social History Social History Smoking status: Never smoker Second hand tobacco smoke exposure: Yes Alcohol intake: never Drinks per week: 2 Alcohol use details: 3 drinks per month. 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 Gender identity (if verbalized by the patient): Male Sexual Orientation (if Verbalized by the Patient): Straight or Heterosexual Spiritual care concerns: No Agree to blood products: Yes Meds Home Medications and Allergies Home Medications ?Medication ?Instructions ?Recorded ?Confirmed ?Type rosuvastatin 5 mg tablet 5 mg PO .Sunday and #30 06/04/23 05/19/24 Rx tabs tadalafil 5 mg tablet 5 mg PO DAILY #90 tabs 12/25/23 05/12/24 Rx amlodipine 5 mg tablet 5 mg PO DAILY #30 tabs 03/31/24 05/19/24 Rx diclofenac sodium 75 mg 75 mg PO BID PRN pain 05/09/24 05/19/24 History tablet,delayed release losartan 25 mg tablet 25 mg PO DAILY #30 tabs 05/12/24 05/19/24 Rx Allergies Allergy/AdvReac Type Severity Reaction Status Date / Time EMELY Inhibitors AdvReac Intermediate Muscle Pain Verified 05/19/24 11:02 nabumetone AdvReac Intermediate Diarrhea Verified 05/19/24 11:02 gabapentin AdvReac Unknown DIFFICULTY Verified 05/19/24 11:02 URINATING Vital Signs Vital Signs - 24 hr 05/19/24 06:07 05/19/24 09:31 05/19/24 09:45 Temperature 98.2 F 97.0 F L Pulse Rate 70 79 78 Respiratory Rate 16 11 L 12 Blood Pressure 170/78 H 129/65 140/71 Pulse Oximetry 99 98 100 Oxygen Delivery Room Air Simple Face Mask Simple Face Mask Oxygen Flow Rate 8 8 05/19/24 10:00 05/19/24 10:15 05/19/24 10:30 Temperature Pulse Rate 79 79 83 Respiratory Rate 14 12 12 Blood Pressure 142/71 H 137/72 140/76 Pulse Oximetry 96 94 95 Oxygen Delivery Room Air Room Air Room Air Oxygen Flow Rate 05/19/24 11:00 05/19/24 11:15 05/19/24 11:45 Temperature 96.8 F L 96.8 F L 96.9 F L Pulse Rate 76 76 76 Respiratory Rate 16 16 16 Blood Pressure 142/76 H 147/70 H 144/73 H Pulse Oximetry 95 95 95 Oxygen Delivery Oxygen Flow Rate Exam Narrative: General: well appearing, appears stated age. HEENT: normocephalic, atraumatic. Mucous membranes moist. EOMI, PERRLA, bilatera l sclera anicteric, no conjunctival injection. Neck supple without JVD, lymphadenopathy, or bruit. Respiratory: clear to ascultation bilaterally. No rales/rhonic/wheezes. Cardiovascular: Regular rate and rhythm, normal S1-S2 upon ascultation. No murmurs, rubs, or clicks. PMI is nondisplaced, capillary refill less than 3 second. Abdomen: Soft, round, no pulsatile masses, nondistended and nontender. No rebound, no guarding. No CVA tenderness, no hepatosplenomegaly. Bowel sounds present to all four quadrants. No high pitch or tinkling sounds, resonant to percussion. Extremities: No cyanosis, clubbing, or edema present. Pulses are palpable 2/2. Surgical site right lower extremity. Right lower extremity swelling Neuro: Alert and orientated x 4. PERRLA. Cranial nerves 2-12 intact without focal deficit. Skin: Warm, dry, and intact, without rash, erythema, or lesion. Psych: pleasant, cooperative, normal speech, normal affect, no hallucinations, no dysarthia Quality VTE Prophylaxis VTE prophylaxis: mechanical ordered and pharmacologic ordered Hospitalist MIPS Advance Care Plan I have confirmed that the patient's Advanced Care Plan is present, code status is documented, or surrogate decision maker is listed in patient medical record.: Yes Medication Reconciliation I have utilized all available resources to obtain, update and review the patients current medications (includes all prescriptions, OTC, herbals, cannabis, and nutritional supplements).: Yes
[2024-05-19] MEDS: HYDROcodone/acetaminophen (*CRX) 7.5-325 MG TABLET 1 TAB PO (17:54)
[2024-05-19] MEDS: RIVAROXABAN 10 MG TABLET PO (17:55)
--- NOTE | 2024-05-19 18:32 | PC.NURSE ---
Patient Paul Smiths declined by patient when this RN tried to put on his bed at 1130 and again at 1835.
[2024-05-20 00:24] VITALS: BP 147/53; PULSE 91; RESP 20; TEMP 37.1; O2SAT 100
[2024-05-20 04:24] VITALS: BP 126/64; PULSE 76; RESP 20; TEMP 37.1; O2SAT 96
[2024-05-20] MEDS: ceFAZolin 2 GM/D5W 50 ML 2 GM/50 ML BAG IVPB (06:05)
[2024-05-20 06:29] LABS: Basophils Percent Auto 0.1 % (0.2-1.2); Hematocrit 40.9 % (42.0-52.0); Hemoglobin 13.6 g/dL (14.0-18.0); Immature Granulocyte Absolute 0.04 K/mm3 (0.00-0.031); Immature Granulocyte Percent A 0.3 % (0-0.5); Lymphocytes Absolute Auto 1.37 K/mm3 (0.9-3.2); Lymphocytes Percent Auto 9.5 % (18.3-44.2); Mean Corpuscular HGB Conc 33.3 g/dl (32-36); Mean Corpuscular Hemoglobin 30.4 pg (26-34); Mean Corpuscular Volume 91.3 fl (80-100); Mean Platelet Volume 9.8 fl (7.4-10.4); Monocytes Absolute Auto 1.8 K/mm3 (0.1-0.6); Monocytes Percent Auto 12.4 % (2.6-8.5); Neutrophils Absolute Auto 11.2 K/mm3 (1.3-6.7); Neutrophils Percent Auto 77.7 % (45.5-73.1); Platelet Count Result 181 k/mm3 (150-375); Red Blood Count 4.48 M/mm3 (4.6-6.20); Red Cell Distribution Width 13.2 % (11.5-14.5); White Blood Count 14.4 K/mm3 (4.5-10.0)
[2024-05-20 06:44] LABS: Anion Gap 8 mmol/L (4-12); Blood Urea Nitrogen 15 mg/dL (9-20); Carbon Dioxide 25 mmol/L (22-30); Chloride 105 mmol/L (98-107); Estimated CRCL calculation 50 ml/min; Estimated Glomerular Filt Rate > 60; Glucose 143 mg/dL (65-110); Potassium 4.1 mmol/L (3.4-5.0); Sodium 138 mmol/L (137-145)
--- NOTE | 2024-05-20 07:23 | PM.PNORT ---
Progress Note: A&P Assessment and Plan (1) History of right hip replacement: Code(s): Z96.641 - Presence of right artificial hip joint Status: Acute Assessment and Plan: Patient underwent total hip arthroplasty on the right for osteoarthritis of the right hip. He has done well postoperatively and I believe he can be dismissed home. Dismissed medication [place] Xarelto and doxycycline. He may be touch weight-bearing on the hip for now. Follow-up in 2 weeks for sutures out. If he has any changes or problems he will call. I have discussed these things with him in detail. Subjective Subjective Date/Time Seen: 05/20/24 07:23 Post Op day: 1 Principal diagnosis: Right total hip arthroplasty for osteoarthritis Review of Systems Musculoskeletal: Musculoskeletal: Reports arthralgias, Reports joint swelling and Reports stiffness Neurologic: Reports abnormal gait Exam Narrative: Patient wiggles toes and appears neurologically intact. The dressing is dry and clean. Patient is able ambulate with a walker. Objective Data Vital Signs Vital Signs: Vital Signs - 24 hr 05/19/24 09:31 05/19/24 09:45 05/19/24 10:00 Temperature 97.0 F L Pulse Rate 79 78 79 Respiratory Rate 11 L 12 14 Blood Pressure 129/65 140/71 142/71 H Pulse Oximetry 98 100 96 Oxygen Delivery Simple Face Mask Simple Face Mask Room Air Oxygen Flow Rate 8 8 05/19/24 10:15 05/19/24 10:30 05/19/24 11:00 Temperature 96.8 F L Pulse Rate 79 83 76 Respiratory Rate 12 12 16 Blood Pressure 137/72 140/76 142/76 H Pulse Oximetry 94 95 95 Oxygen Delivery Room Air Room Air Oxygen Flow Rate 05/19/24 11:15 05/19/24 11:45 05/19/24 13:30 Temperature 96.8 F L 96.9 F L 97.5 F L Pulse Rate 76 76 83 Respiratory Rate 16 16 17 Blood Pressure 147/70 H 144/73 H 137/71 Pulse Oximetry 95 95 96 Oxygen Delivery Oxygen Flow Rate 05/19/24 13:37 05/19/24 14:24 05/19/24 16:38 Temperature 97.8 F Pulse Rate 75 Respiratory Rate 17 Blood Pressure 128/65 Pulse Oximetry 96 Oxygen Delivery Room Air Room Air Oxygen Flow Rate 05/19/24 20:00 05/19/24 20:24 05/20/24 00:24 Temperature 97.8 F 98.7 F Pulse Rate 75 91 Respiratory Rate 20 20 Blood Pressure 165/65 H 147/53 H Pulse Oximetry 99 100 Oxygen Delivery Room Air Oxygen Flow Rate 05/20/24 04:24 Temperature 98.7 F Pulse Rate 76 Respiratory Rate 20 Blood Pressure 126/64 Pulse Oximetry 96 Oxygen Delivery Oxygen Flow Rate Intake/Output Intake/Output: Intake & Output 05/17/24 05/18/24 05/19/24 05/20/24 23:59 23:59 23:59 23:59 Intake Total 2009 450 Output Total 250 175 Balance 1760 275 Meds/Results Medications: Active Medications Generic Name Dose Route Start Last Admin Trade Name Freq PRN Reason Stop Dose Admin Hydrocodone Bitart/Acetaminophen 1 tab 05/19/24 10:39 05/19/24 23:10 Hydrocodone/Acetaminophen (*Crx) 5-325 Mg Tablet PO 1 tab Q4H PRN Administration Pain Rated 4-6 Hydrocodone Bitart/Acetaminophen 1 tab 05/19/24 10:39 05/19/24 17:54 Hydrocodone/Acetaminophen (*Crx) 7.5-325 Mg Tablet PO 1 tab Q4H PRN Administration Pain Rated 7-10 Celecoxib 200 mg 05/20/24 09:00 Celecoxib 200 Mg Capsule PO DAILY ERICA Hydromorphone HCl 1 mg 05/19/24 10:39 Hydromorphone Hcl Inj (*Crx) 1 Mg/Ml Syr IV PUSH Q2H PRN Breakthrough Pain Rated 7-10 or NPO Hydromorphone HCl 0.5 mg 05/19/24 10:39 Hydromorphone Hcl Inj (*Crx) 1 Mg/Ml Syr IV PUSH Q2H PRN Breakthrough Pain Rated 4-6 or NPO Cefazolin Sodium 2 gm in 50 mls @ 100 mls/hr 05/19/24 15:00 05/20/24 06:35 Ancef 2 Gm/D5w 50 Ml IVPB 05/20/24 07:29 Infused Q8H ERICA Infusion Ibuprofen 800 mg in 200 mls @ 400 mls/hr 05/19/24 10:39 Caldolor 800 Mg/200 Ml IVPB Q6H PRN Breakthrough Pain Rated 1-3 or NPO Sodium Chloride 1,000 mls @ 125 mls/hr 05/19/24 10:39 Normal Saline Iv IV CONT .Q8H [facility] Losartan Potassium 25 mg 05/19/24 13:00 05/19/24 18:06 Losartan Potassium 25 Mg Tablet PO Not Given DAILY [facility] Naloxone HCl 0.1 mg 05/19/24 10:39 Naloxone Hcl 0.4 Mg/Ml Vial IV PUSH Q2M PRN Opiate Reversal Ondansetron HCl 4 mg 05/19/24 10:39 05/19/24 11:34 Ondansetron Inj 4 Mg/2 Ml Vial IV PUSH 4 mg Q4H PRN Administration Nausea And Vomiting Polyethylene Glycol 17 gm 05/20/24 09:00 Polyethylene Glycol 3350 17 Gm Powd.Pack PO QAM [facility] Rivaroxaban 10 mg 05/19/24 17:00 05/19/24 17:55 Rivaroxaban 10 Mg Tablet PO 06/22/24 17:01 10 mg DAILY@1700 [facility] Administration Senna/Docusate Sodium 2 tab 05/19/24 17:00 05/19/24 17:56 Senna/Docusate Sodium Tablet PO Not Given BID [facility] Tramadol HCl 50 mg 05/19/24 10:39 Tramadol Hcl (*Crx) 50 Mg Tablet PO Q4H PRN Pain Rated 1-3 Radiology Results: ITS Impressions Intraoperative X-Ray 05/19/24 09:13 IMPRESSION: 1. Expected appearance during right total hip arthroplasty. Labs Labs: Laboratory Results - last 24 hr 05/20/24 06:08 WBC 14.4 H RBC 4.48 L Hgb 13.6 L D Hct 40.9 L MCV 91.3 MCH 30.4 MCHC 33.3 RDW 13.2 Plt Count 181 MPV 9.8 Immature Gran % (Auto) 0.3 Neut % (Auto) 77.7 H Lymph % (Auto) 9.5 L [place] % (Auto) 12.4 H Eos % (Auto) 0.0 Baso % (Auto) 0.1 L Lymph # (Auto) 1.37 [place] # (Auto) 1.8 H Eos # (Auto) 0.0 Baso # (Auto) 0.0 Abs Immat Gran (auto) 0.04 H Absolute Neuts (auto) 11.2 H Absolute Nucleated RBC 0.000 Nucleated RBC % 0.0 Sodium 138 Potassium 4.1 Chloride 105 Carbon Dioxide 25 Anion Gap 8 BUN 15 Creatinine 1.16 Estim Creat Clear Calc 50 Estimated GFR > 60 Glucose 143 H Calcium 9.0
--- NOTE | 2024-05-20 07:26 | P.DS_ITS ---
DS: Admitting Diagnosis Discharge Date 05/20/2024 Admitting Diagnosis Osteoarthritis right hip DS: Discharge Diagnosis Discharge Diagnosis (1) History of right hip replacement: Code(s): Z96.641 - Presence of right artificial hip joint Status: Acute Assessment and Plan: Patient underwent total hip arthroplasty for osteoarthritis of the right hip. He has done well postoperatively and can be dismissed home. DS: Summary Hospital Course Hospital Course: Patient underwent total hip what is the arthroplasty for osteoarthritis of the right hip. He has done well postoperatively can be dismissed home. Dismissed medication is [place] Xarelto and doxycycline. He may be toe-touch weight-bearing on the leg. He walks with a walker. He has any changes or problems he is instructed to call. Anticipate follow-up in 2 weeks for sutures out. Status at Discharge Functional status at discharge: uses cane/walker Time Spent with Patient Time attestation: Total time spent providing and/or coordinating discharge services: Exam Narrative: Patient is neurologically intact. He is able ambulate with a walker. His dressing is intact. And dry. Eyes: General: appearance normal, both eyes and all related structures Neck: Neck: supple Resp: Effort & Inspection: normal respiratory effort Cardio: Rate: regular rate Rhythm: regular rhythm DS: Data Data Completed and Pending Labs on day of discharge: Labs from last 24 hours 05/20/24 06:08 WBC 14.4 H RBC 4.48 L Hgb 13.6 L D Hct 40.9 L MCV 91.3 MCH 30.4 MCHC 33.3 RDW 13.2 Plt Count 181 MPV 9.8 Immature Gran % (Auto) 0.3 Neut % (Auto) 77.7 H Lymph % (Auto) 9.5 L [place] % (Auto) 12.4 H Eos % (Auto) 0.0 Baso % (Auto) 0.1 L Lymph # (Auto) 1.37 [place] # (Auto) 1.8 H Eos # (Auto) 0.0 Baso # (Auto) 0.0 Abs Immat Gran (auto) 0.04 H Absolute Neuts (auto) 11.2 H Absolute Nucleated RBC 0.000 Nucleated RBC % 0.0 Sodium 138 Potassium 4.1 Chloride 105 Carbon Dioxide 25 Anion Gap 8 BUN 15 Creatinine 1.16 Estim Creat Clear Calc 50 Estimated GFR > 60 Glucose 143 H Calcium 9.0 Discharge Plan Discharge Patient Disposition: Home, Self-Care Discharge Instructions: Dr. Cameron Ly M.D [address] [address] POST-OPERATIVE DISCHARGE INSTRUCTIONS TOTAL HIP ARTHROPLASTY 1. Move toes/feet up and down every hour while awake. 2. Be up walking every hour while awake. 3. Use walker supervisor hanging and trimming if instructed to use walker supervisor hanging and trimming.When you are allowed to use the cane, use the cane in the opposite hand. 4. When resting, do not rest in the chair. Rather, lie on your back, with back flat, and the leg elevated above heart to minimize swelling. You may put a pillow under your head. Do not rest in a chair. Resting in the chair results in swelling in the leg. Significant swelling could indicate a blood clot and if this occurs, call the office (or go to the ER) to have a venous ultrasound performed. Its ok to sit in the chair to eat and use the toilet and to receive a guest but sitting in a chair will cause your leg to swell. so try to minimize sitting in a chair. 5. Wound Care: Apply a folded 4x4 sponge to incision and hold with crossing strips of 1 inch Transpore tape. 6. Follow weight bearing status as instructed: 7. May shower. Remove dressing before shower and reapply dressing after shower. Patient Language: Indonesian Stand Alone Forms: General Discharge Instructions Follow-up/Referrals: Cameron Ly MD [Physician] - Discharge Medications: New doxycycline hyclate 100 mg tablet 100 mg PO DAILY Qty: 10 0RF hydrocodone-acetaminophen 7.5-325 mg tablet 1 tablet PO Q4H PRN (Reason: pain) Qty: 40 0RF Xarelto 10 mg tablet 10 mg PO DAILY Qty: 20 0RF Rx Instructions: for 20 days Continued rosuvastatin 5 mg tablet 5 mg PO .Sunday and Qty: 30 3RF losartan 25 mg tablet 25 mg PO DAILY Qty: 30 3RF tadalafil 5 mg tablet 5 mg PO DAILY Qty: 90 3RF amlodipine 5 mg tablet 5 mg PO DAILY Qty: 30 6RF Patient Comments: Q EVENING Held diclofenac sodium 75 mg tablet,delayed release (DR/EC) 75 mg PO BID PRN (Reason: pain) Hold Instructions: Resume on 05/24/24. Until Xarelto is finished
[2024-05-20] MEDS: HYDROcodone/acetaminophen (*CRX) 7.5-325 MG TABLET 1 TAB PO (08:20)
[2024-05-20] MEDS: LOSARTAN POTASSIUM 25 MG TABLET PO (08:22)
[2024-05-20] MEDS: CELECOXIB 200 MG CAPSULE PO (08:22)
[2024-05-20] MEDS: SENNA/DOCUSATE SODIUM TABLET 2 TAB PO (08:22)
--- NOTE | 2024-05-20 08:47 | PCOTNOTE ---
Patient is eating breakfast will attempt again after.
== END 2024-05-20 13:00 | disposition home or self-care (01) ==
LOC: ANHSURGERY 06:01 → ANH3MEDSUR 10:44
PROVIDERS: PCP Family Medicine; Visit Provider Orthopaedic Surgery
PROC: (CPT 27130; principal; 2024-05-19 07:30)
DX: M16.11 Unilateral primary osteoarthritis, right hip (principal); I12.9 Hypertensive chronic kidney disease with stage 1 through stage 4 chronic kidney disease, or unspecified chronic kidney disease; N18.30 Chronic kidney disease, stage 3 unspecified; E78.2 Mixed hyperlipidemia
CPT/HCPCS: 27130; 36415; 80048; 85025; 97110; 97116; 97161; 97166; 97530; 97535; 99199; A9270; C1776; J0690; J1100; J1171; J1596; J2003; J2371; J2405; J2704; J3010; J3370; J7120